=== PATIENT | male | born 1940 | race Caucasian/White ===

== ENCOUNTER → 2018-09-11 09:30 | Outpatient (CLI) | payer MEDICARE, SELFPAY ==
--- NOTE | 2018-09-11 09:36 | CT_ITS ---
CT abdomen pelvis wo con CLINICAL INDICATION: Follow-up left renal cyst ITS.REASON: LT RENAL CYST,AAA ORDERING PHYSICIAN: Sukumar Mckinley MD PATIENT AGE: 78 years COMPARISON: 09/02/2017 TECHNIQUE: Axial images obtained with sagittal and coronal reformats. All CT scans at the facility use one or more dose reduction, viz: automated exposure control, ma/kV adjustment per patient size (including targeted exams where dose is matched to indication, i.e. head), or iterative reconstruction technique. PROCEDURE: Oral Contrast: Redicat IV Contrast: None . IV contrast not utilized due to patient's elevated creatinine FINDINGS: Chronic changes are present in the lung bases. There are coronary artery calcifications. The spleen, liver, adrenal glands, and pancreas show no acute finding. Splenic and hepatic calcifications are present consistent with old granulomatous disease. There is an 8.3 x 7.9 cm left renal cyst along the mid and lower pole of the left kidney similar to the previous exam. No renal or ureteral calculi are evident. No hydronephrosis. There is an infrarenal abdominal aortic aneurysm fusiform in nature measuring up to 3.8 x 4 cm transverse and AP previously 3.6 x 4 cm. No evidence of acute retroperitoneal hemorrhage. No retroperitoneal fibrosis or mass evident. The proximal right common iliac shows mild fusiform dilatation at 1.7 cm not significant change. The distal aspect of the left common iliac is 1.4 cm not significant change. No intestinal obstruction or free air. There are small bilateral inguinal hernias which contain fat. No evidence of appendicitis or diverticulitis. The prostate is enlarged at 6.3 cm with some coarse calcification peripherally on the posterior margin with mild prominence of the seminal vesicles. There are postsurgical changes of the lumbar spine with no acute bony anomaly evident. IMPRESSION: 1. Slightly enlarged abdominal aortic aneurysm measuring up to 4 x 3.8 cm previously 4 x 3.6 cm. No evidence of retroperitoneal hemorrhage. 2. No change in the 8 cm left renal cyst. 3. Enlarged prostate
== END ==
PROVIDERS: PCP Family Medicine; Visit Provider Family Medicine
DX: N28.1 Cyst of kidney, acquired (principal); I71.9 Aortic aneurysm of unspecified site, without rupture
CPT/HCPCS: 74176

== ENCOUNTER → 2019-08-27 14:12 | Outpatient (CLI) | payer MEDICARE, SELFPAY ==
--- NOTE | 2019-08-27 14:23 | CT_ITS ---
PROCEDURE: CT ABDOMEN PELVIS WO CON CLINICAL INDICATION: CYST OF LT KIDNEY,AORTIC ANEURYSM Follow-up left renal cyst COMPARISON: ABDPELW/O CT ABD PELVIS W/O CONTRAST from 03/31/[address] abdomen pelvis wo con from 09/11/2018 TECHNIQUE: Axial images obtained with sagittal and coronal reformats. All CT scans at the facility use one or more dose reduction, viz: automated exposure control, ma/kV adjustment per patient size (including targeted exams where dose is matched to indication, i.e. head), or iterative reconstruction technique. FINDINGS: LOWER THORAX: Mild atelectatic or fibrotic changes in the lung bases. There is a small pneumatocele in the right middle lobe laterally bilobular unchanged measuring 2.8 cm. Coronary artery calcifications are present. Abdomen pelvis: The liver, spleen, adrenal glands, pancreas, and gallbladder have an unremarkable unenhanced appearance. No renal or ureteral calculi. No hydronephrosis. There is an 8.8 x 8.5 cm left renal cyst which has slightly increased in size compared to the previous exam previously at 8.6 by 8.4 cm. No obvious wall thickening or internal septations. This cyst has been present 03/08/2015. There are few scattered small mesenteric lymph nodes nonspecific. No intestinal obstruction or free air. No evidence appendicitis or diverticulitis. There is a infrarenal abdominal aortic aneurysm which measures up to 3.8 cm in transverse dimension and 3.8 cm in AP dimension not significantly changed. No evidence of acute retroperitoneal hemorrhage. The prostate is enlarged at 6 cm. The seminal vesicles are also slightly prominent. Urinary bladder wall appears slightly thickened. There are small bilateral inguinal hernias. The hernias contain fat. A small bowel loop is present at the mouth of the right inguinal hernia but does not extend into the inguinal canal. Mild degenerative changes in the lumbar spine and hips. IMPRESSION: 1. Overall stable CT appearance of the abdomen. 8.8 x 8.5 cm left renal cyst once again noted and may be very slightly larger but not significantly changed. Benign features. Bosniak 1. 2. No change 3.8 cm infrarenal abdominal aortic aneurysm. 3. No change in large prostate with mild thickening of the urinary bladder. 4. Bilateral inguinal hernias containing fat Dictated by: Olivier Harmon MD 08/27/2019 19:42 Electronically signed by Olivier Harmon MD in [place] 08/28/2019 10:12
== END ==
PROVIDERS: PCP Family Medicine; Visit Provider Family Medicine
DX: N28.1 Cyst of kidney, acquired (principal); I71.4 Abdominal aortic aneurysm, without rupture
CPT/HCPCS: 74176

== ENCOUNTER 2021-11-11 12:43 | Inpatient (IN) | payer MEDICARE, SELFPAY ==
[2021-11-11 12:45] VITALS: BP 137/66; PULSE 78; RESP 18; TEMP 36.4; O2SAT 98; BMI 23.7
--- NOTE | 2021-11-11 12:57 | XR_ITS ---
FINAL REPORT CLINICAL HISTORY: pain FINDINGS: LEFT HIP SERIES Two views of the left hip were obtained. There is a left femoral neck fracture with coxa vera deformity. There are mild degenerative changes of the hips bilaterally. IMPRESSION: Left femoral neck fracture with coxa vera deformity. Reviewed, Interpreted and Dictated by Alvino Higuera III, MD Transcribed by VIVIAN King Authenticated by Alvino Higuera III, MD on 11/11/2021 01:39:[address] [facility]
--- NOTE | 2021-11-11 13:00 | HMH.EDGENADL ---
ED Disposition Clinical Impression: Fracture closed, acetabulum Qualifiers: Encounter type: initial encounter Sublocation of acetabulum: unspecified portion of acetabulum Fracture alignment: nondisplaced Laterality: unspecified laterality Qualified Code(s): S32.409A - Unspecified fracture of unspecified acetabulum, initial encounter for closed fracture Disposition: Admitted as Observation Condition on Discharge: [facility] - Critical Care Critical Care Time: No Attestation: On 11/11/21, the high probability of a clinically significant, sudden or life threatening deterioration of the following system(s) required my full and direct attention, intervention and personal management. The time I documented below is in addition to time spent performing reported procedures but includes the following listed in this critical care notation. Medical Decision Making - Medical Records Medical records reviewed: Yes: I reviewed the patient's medical records. - [place] Inquiry Pt receiving controlled substance: No Vital Signs: 11/11/21 12:45 11/11/21 13:50 11/11/21 16:00 Temperature 97.6 F 98.8 F Temperature Source Oral Oral Pulse Rate 68 Pulse Rate [Radial] 78 79 Respiratory Rate 18 18 16 Blood Pressure 146/74 H Blood Pressure [Right Arm] 137/66 128/73 Blood Pressure Mean 95 Blood Pressure Mean [Right Arm] 89 91 Blood Pressure Source [Right Arm] Automatic Cuff Blood Pressure Position Blood Pressure Position [Right Arm] Sitting Supine 02 Sat by Pulse Oximetry 98 96 97 Oxygen Delivery Method Room Air Room Air Oxygen Flow Rate (LPM) 11/11/21 16:10 Temperature 98 F Temperature Source Oral Pulse Rate 78 Pulse Rate [Radial] Respiratory Rate 18 Blood Pressure 122/74 Blood Pressure [Right Arm] Blood Pressure Mean Blood Pressure Mean [Right Arm] Blood Pressure Source [Right Arm] Blood Pressure Position Sitting Blood Pressure Position [Right Arm] 02 Sat by Pulse Oximetry Oxygen Delivery Method Nasal Cannula Oxygen Flow Rate (LPM) 2 - Lab Data Lab Results 11/11/21 13:20: WBC 10.7, RBC 5.00, Hgb 15.0, Hct 46.5, MCV 93.1, MCH 30.1, MCHC 32.3, RDW 12.9, Plt Count 319, MPV 8.7, Neut % (Auto) 82.6 H, Lymph % (Auto) 10.3, [place] % (Auto) 5.7, Eos % (Auto) 1.0, Baso % (Auto) 0.5, Neut # (Auto) 8.8 H, Lymph # (Auto) 1.1, [place] # (Auto) 0.6, Eos # (Auto) 0.1, Baso # (Auto) 0.1 11/11/21 13:20: PT 10.9, INR 0.96, APTT 22.9 11/11/21 13:20: Sodium 133 L, Potassium 4.1, Chloride 103, Carbon Dioxide 23, Anion Gap 11.1, BUN 18, Creatinine 1.10, Estimated Creat Clear 57, Estimated GFR 64, Est GFR ( Amer) 77, Glucose 100, Calcium 8.8, Total Bilirubin 0.6, AST 36, ALT 23, Alkaline Phosphatase 53, Total Protein 7.0, Albumin 4.1, Globulin 2.9, Albumin/Globulin Ratio 1.4 11/11/21 13:20: Hemoglobin A1c 5.6 11/11/21 13:45: SARS-CoV-2 (PCR) Not detected, Influenza A Untype (PCR) Not detected, Influenza Type B (PCR) Not detected 11/11/21 14:30: Blood Type O Positive, Antibody Screen Negative Result diagrams: 11/13/21 06:33 11/13/21 06:33 Orders (Tests/Meds): ED MEDICATIONS Discontinued Medications Generic Name Dose Route Start Last Admin Trade Name Freq PRN Reason Stop Dose Admin Acetaminophen 650 mg 11/12/21 17:27 Acetaminophen 325mg Tab PO 12/12/21 17:26 Q6HP PRN Mild to Moderate Pain Hydrocodone Bitart/Acetaminophen 1 tab 11/12/21 17:27 11/13/21 04:52 Hydrocodone/Apap 5/325 Mg Tablet PO 12/12/21 17:26 1 tab Q4HP PRN Administration Moderate to Severe Pain Hydrocodone Bitart/Acetaminophen 1 - 2 tab 11/13/21 07:24 11/16/21 04:04 Hydrocodone/Apap 5/325 Mg Tablet PO 12/12/21 17:26 1 tab Q4HP PRN Administration Mild to Moderate Pain Aspirin 325 mg 11/13/21 09:00 11/16/21 08:11 Aspirin 325mg Tablet PO 12/13/21 08:59 325 mg DAILY JONAH Administration Docusate Sodium 100 mg 11/12/21 17:27 11/15/21 21:11 Docusate Sodium 100 Mg Capsule PO 12/12/21 17:
--- NOTE | 2021-11-11 13:14 | XR_ITS ---
FINAL REPORT CLINICAL HISTORY: FALL FINDINGS: A single portable view of the chest was obtained. The heart size and pulmonary vascularity are within normal limits. There are postoperative changes of median sternotomy. No acute pulmonary abnormality is identified. There is mild scarring. The bony thorax is intact. IMPRESSION: No active cardiopulmonary disease. Reviewed, Interpreted and Dictated by Alvino Higuera III, MD Transcribed by VIVIAN King Authenticated by Alvino Higuera III, MD on 11/11/2021 01:40:35 PM [facility]
--- NOTE | 2021-11-11 13:20 | ECG_ITS ---
APPROVED REPORT Exam: Resting ECG HR:63 bpm ECG Measurements Heart Rate 63 AXES NV 228 P 59 QRSd 140 QRS 92 QT 414 T 53 QTc 422 Conclusion SINUS RHYTHM WITH FIRST DEGREE AV BLOCK RIGHT BUNDLE BRANCH BLOCK [120+ ms QRS DURATION, UPRIGHT V1, 40+ ms S IN I/aVL/V4/V5/V6] ABNORMAL ECG UNCONFIRMED REPORT Electronically signed by : Joel Vieyra MD 11/12/2021 18:50:22
--- NOTE | 2021-11-11 13:31 | PC.NURSE ---
DR DUQUE SPOKE WITH DR SMITH NOW SPEAKING WITH ASAD/KAHLIL FOR ADMISSION
--- NOTE | 2021-11-11 13:38 | PC.NURSE ---
SPOKE WITH HOUSE REGARDING ADMISSION
[2021-11-11 13:50] VITALS: BP 146/74; PULSE 68; RESP 18; O2SAT 96
[2021-11-11 14:07] LABS: Coronavirus 19, PCR Not Detected (NotDetected); Influenza A, PCR Not Detected (NotDetected); Influenza B, PCR Not Detected (NotDetected)
[2021-11-11 14:10] LABS: Basophils # 0.1 K/mm3 (0-0.2); Basophils % 0.5 % (0.1-2.0); Eosinophils # 0.1 K/mm3 (0.0-0.4); Hematocrit 46.5 % (42.0-52.0); Lymphocytes # 1.1 K/mm3 (0.7-4.5); Lymphocytes % 10.3 % (10-50); Mean Corpuscular HGB Conc 32.3 g/dL (31.8-35.4); Mean Corpuscular Hemoglobin 30.1 pg (27.0-31.2); Mean Corpuscular Volume 93.1 fl (80-94); Mean Platelet Volume 8.7 fl (7.4-10.4); Monocytes # 0.6 K/mm3 (0.1-1.0); Monocytes % 5.7 % (1.7-9.3); Neutrophils # 8.8 K/mm3 (1.8-7.8); Neutrophils % 82.6 % (37.0-80.0); Platelet Count 319 K/mm3 (142-424); Red Cell Distribution Width 12.9 % (11.5-17.5); White Blood Count 10.7 K/mm3 (4.8-10.8)
[2021-11-11 14:17] LABS: Chloride 103 mmol/L (98-107)
[2021-11-11 14:18] LABS: Potassium 4.1 mmoL/L (3.5-5.1); Sodium 133 mmol/L (136-145)
[2021-11-11 14:20] LABS: Alanine Aminotransferase 23 U/L (12-78); Albumin Level 4.1 g/dl (3.5-5.0); Albumin/Globulin Ratio 1.4 (1.1-1.8); Alkaline Phosphatase 53 U/L (38-126); Aspartate Amino Transferase 36 U/L (17-59); Bilirubin,Total 0.6 mg/dl (0.2-1.3); Blood Urea Nitrogen 18 mg/dl (9-20); Creatinine Clearance Estimated 57 mL/min (50-200); Estimated Glomerular Filt Rate 64 ml/min (>60); GFR (African American) 77 ML/MIN (>60); Globulin 2.9 g/dL (1.3-3.2)
[2021-11-11 14:21] LABS: Calcium 8.8 mg/dl (8.4-10.2); Glucose 100 mg/dl (74-100)
[2021-11-11 14:32] LABS: Activated Partial Thrombo Time 22.9 seconds (22.8-30.6); INR 0.96 (0.9-1.1); Prothrombin Time 10.9 seconds (10.1-12.5)
[2021-11-11 14:57] LABS: Hemoglobin A1C 5.6 % (4.0-6.0)
--- NOTE | 2021-11-11 15:30 | PC.NURSE ---
report called to floor
[2021-11-11 15:53] LABS: Anion Gap 11.1 mEq/L (5-15); Carbon Dioxide 23 mmol/L (22.0-30.0)
[2021-11-11 16:00] VITALS: BP 128/73; PULSE 79; RESP 16; TEMP 37.1; O2SAT 97
[2021-11-11 16:10] VITALS: BP 122/74; PULSE 78; RESP 18; TEMP 36.6; O2SAT 98
--- NOTE | 2021-11-11 16:22 | HMH.ORTHOCON ---
*Admission Date: 11/11/21 <Chasidy Ames - 11/11/21 16:22> *Reason for consult:: left hip fracture <Chasidy Ames - 11/11/21 16:22> *History of present illness: PCP is Dr. Mckinley. No history of any prior hip pain, injuries, surgery or problems. Normally mobile and independent without using any walking aids. He lives in a house which is on one level but has few steps to get into the house. Patient is giving history of type 2 diabetes which is well controlled. 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 <Hany Borden - 11/11/21 19:30> Patient is an 81-year-old male admitted to the acute inpatient service today 11/11/2021 from the [facility] ED after sustaining a fall at home. He reports that earlier today he was walking to his mailbox when he slipped on ice and fell. He reports that he fell on his left side and had immediate pain in his left hip; he was unable to get up and walk but was able to crawl back to his house. He presented to the [facility] ED where evaluation revealed a left subcapital femoral neck fracture. This afternoon the patient states that he has little pain at rest but any attempted movements of the left hip/leg cause him severe pain in his left hip. At baseline he states that he is ambulatory without the use of a cane or walker and lives at home with his . He denies dizziness, weakness, loss of consciousness, chest pain, palpitations, shortness of breath, or any other symptoms/concerns at this time. His past medical history is significant for hypertension, hyperlipidemia, and coronary artery disease. <Chasidy Ames - 11/11/21 16:40> [facility] History Medical History: Reports:: Coronary Artery Disease, Hyperlipidemia, Hypertension Denies:: Diabetes Mellitus Type 1, Diabetes Mellitus Type 2, Internal Pacemaker, Lung Disease, Seizures <Chasidy Ames - 11/11/21 16:22> *Have you ever received a pneumonia vaccine?: Yes <Chasidy Ames - 11/11/21 16:22> *Have you received a flu vaccine this season?: Yes <Chasidy Ames - 11/11/21 16:22> Other Surgeries: Yes: CABG, Colonoscopy, Other (back). No: Pacemaker <Chasidy Ames 11/11/21 16:22> - *Social History Smoking Status: Never smoker <Chasidy Ames 11/11/21 16:22> Alcohol Intake: never <Chasidy Ames 11/11/21 16:22> Substance Use Type: denies use <Chasidy Ames 11/11/21 16:22> *Occupational Status:: other <Chasidy Ames 11/11/21 16:22> *Travel in the last 8 weeks: None <Chasidy Ames 11/11/21 16:49> Family Hx:: No significant family history <Chasidy Ames 11/11/21 16:22> Review of Systems - Review of Systems Review of systems:: pertinent systems reviewed and negative unless documented below <Chasidy Ames 11/11/21 16:40> - Constitutional Denies anorexia, Denies body ache(s), Denies chills, Denies fatigue, Denies fever(s), Denies headache(s), Denies weakness <Chasidy Ames 11/11/21 16:40> - Eyes Denies blurry vision, Denies change in vision, Denies loss of vision <Chasidy Ames 11/11/21 16:40> - ENT Denies abnormal hearing, Denies dizziness, Denies headache(s), Denies nasal congestion, Denies neck pain, Denies sore throat <Chasidy Ames 11/11/21 16:40> - *Cardiovascular Denies chest pain, Denies chest pain at rest, Denies chest pain with activity, Denies shortness of breath, Denies shortness of breath with activity, Denies irregular heart rhythm, Denies radiating jaw, neck or arm pain <Chasidy Ames 11/11/21 16:40> - *Respiratory Denies chest congestion, Denies cough, Denies shortness of breath, Denies shortness of breath with activity, Denies wheezing <Chasidy Ames 11/11/21 16:40> - *Gastrointestinal Denies abdominal pain, Denies constipation, Denies nausea, Denies vomiting <Chasidy Ames - 11/11/21 16:40> - *Genitourinary Denies difficulty urinating, Denies painful urination, Denies uri
[2021-11-11 17:04] VITALS: BMI 22.8
[2021-11-11 17:46] LABS: Microscopic, Urine URINE MICROSCOPIC (MICROSCOPIC)
[2021-11-11 18:11] LABS: Appearance,Urine SL CLOUDY (Clear); Bilirubin,Urine Negative (Negative); Blood, Urine 3+ (Negative); Color,Urine YELLOW (Yellow); Glucose,Urine (UA) Negative (Negative); Ketones,Urine TRACE (Negative); Leukocyte Esterase,Urine Negative (Negative); Nitrate,Urine Negative (Negative); Protein,Urine Negative (Negative); Urobilinogen,Urine 0.2 EU/dl (0.2)
--- NOTE | 2021-11-11 18:17 | HMH.HP ---
*Admission Date: 11/11/21 *Chief complaint: fall w/left hip pain *History of present illness: 81 year old male fell at home after slipping on ice and sustained left hip injury. Evaluttion in ER revealed subcapital left femoral neck fracture. He has been admitted with planned surgical correction. [facility] History I have reviewed the patient's past medical history: Yes Medical History: Reports:: BPH, Coronary Artery Disease (CABG 1990), Hyperlipidemia, Hypertension Denies:: Diabetes Mellitus Type 1, Diabetes Mellitus Type 2, Internal Pacemaker, Lung Disease, Seizures *Have you ever received a pneumonia vaccine?: Yes *Have you received a flu vaccine this season?: Yes Other Medical History: Reports: Arthritis Other Surgeries: Yes: CABG, Colonoscopy, Other (back). No: Pacemaker - *Social History Smoking Status: Former smoker Alcohol Intake: never Substance Use Type: denies use *Occupational Status:: retired *Travel in the last 8 weeks: None Family Hx:: Heart Attack Review of Systems - Review of Systems Review of systems:: pertinent systems reviewed and negative unless documented below - *Cardiovascular Denies chest pain, Denies chest pain at rest, Denies chest pain with activity, Denies shortness of breath, Denies shortness of breath with activity, Denies irregular heart rhythm, Denies leg swelling, Denies shortness of breath when lying down, Denies rapid, pounding, or irregular heartbeat, Denies shortness of breath causing sudden awakening, Denies radiating jaw, neck or arm pain - *Neurologic Reports abnormal walking, Denies abnormal hearing, Denies abnormal movements, Denies abnormal speech, Denies behavioral changes, Denies confusion, Denies dizziness, Denies headache(s), Denies loss of vision, Denies numbness, Denies sensory deficit, Denies tingling, Denies weakness Meds Home Medications Medication Instructions Recorded Confirmed Type aspirin 81 mg tablet,delayed 81 mg PO DAILY 09/12/18 11/11/21 History release losartan 100 mg tablet 100 mg PO DAILY 09/12/18 11/11/21 History simvastatin 40 mg tablet 40 mg PO QHS 09/12/18 11/11/21 History Allergies Allergy/AdvReac Type Severity Reaction Status Date / Time codeine [CODEINE] Allergy Unknown I-RASH Verified 09/18/19 11:10 Exam Vital signs and Labs for Last 24 Hours: Temp Pulse Resp BP Pulse Ox 98 F 78 18 122/74 96 11/11/21 16:10 11/11/21 16:10 11/11/21 16:10 11/11/21 16:10 11/11/21 13:50 Laboratory Results - last 24 hr 11/11/21 13:20: WBC 10.7, RBC 5.00, Hgb 15.0, Hct 46.5, MCV 93.1, MCH 30.1, MCHC 32.3, RDW 12.9, Plt Count 319, MPV 8.7, Neut % (Auto) 82.6 H, Lymph % (Auto) 10.3, [place] % (Auto) 5.7, Eos % (Auto) 1.0, Baso % (Auto) 0.5, Neut # (Auto) 8.8 H, Lymph # (Auto) 1.1, [place] # (Auto) 0.6, Eos # (Auto) 0.1, Baso # (Auto) 0.1 11/11/21 13:20: PT 10.9, INR 0.96, APTT 22.9 11/11/21 13:20: Sodium 133 L, Potassium 4.1, Chloride 103, Carbon Dioxide 23, Anion Gap 11.1, BUN 18, Creatinine 1.10, Estimated Creat Clear 57, Estimated GFR 64, Est GFR ( Amer) 77, Glucose 100, Calcium 8.8, Total Bilirubin 0.6, AST 36, ALT 23, Alkaline Phosphatase 53, Total Protein 7.0, Albumin 4.1, Globulin 2.9, Albumin/Globulin Ratio 1.4 11/11/21 13:20: Hemoglobin A1c 5.6 11/11/21 13:45: SARS-CoV-2 (PCR) Not detected, Influenza A Untype (PCR) Not detected, Influenza Type B (PCR) Not detected 11/11/21 14:30: Blood Type O Positive, Antibody Screen Negative I & O for Last 24 hours: Intake & Output 11/09/21 11/10/21 11/11/21 11/12/21 11:59 11:59 11:59 11:59 Weight 167 lb 15.876 oz - Constitutional no acute distress - *Routine HEENT Exam Head: Present: normocephalic Eye: Present: EOMI, PERRL ENT: Present: mucous membranes moist - *Routine Neck Exam Present: supple. Absent: lymphadenopathy - *Routine Respiratory Exam Present: CTA bilaterally - *Routine Cardiovascular Exam Present: RRR - *Routine Abdominal Exam Present: soft, normoactive bowel s
[2021-11-11 18:20] LABS: Bacteria,Urine 1+ /lpf; RBC,Urine 50-100 #/hpf (0-3); Squamous Epithelial Cell,Urine Occasional #/hpf (0-5)
[2021-11-11 20:00] VITALS: BP 127/70; PULSE 81; RESP 18; TEMP 36.8; O2SAT 92
[2021-11-12] VITALS (19 sets, daily range): BP systolic 98–156; BP diastolic 53–84; PULSE 61–100; RESP 12–18; TEMP 36.6–43; O2SAT 93–95; BMI 22.6
--- NOTE | 2021-11-12 05:37 | PC.NURSE ---
Pt has c/o x3 of pain in left hip, medicated per MAR with some relief. Pt remains on 2L NC with O2 sats >90%. O2 sat on RA is 88-89%. Sheth is draining dark aristeo urine at bedside. Call light within reach.
[2021-11-12 06:20] LABS: Basophils % 0.4 % (0.1-2.0); Eosinophils # 0.3 K/mm3 (0.0-0.4); Eosinophils % 2.5 % (0.1-12.0); Hematocrit 43.2 % (42.0-52.0); Hemoglobin 14.4 g/dL (14.1-18.0); Lymphocytes # 1.1 K/mm3 (0.7-4.5); Lymphocytes % 10.2 % (10-50); Mean Corpuscular HGB Conc 33.4 g/dL (31.8-35.4); Mean Corpuscular Hemoglobin 30.1 pg (27.0-31.2); Mean Corpuscular Volume 89.9 fl (80-94); Mean Platelet Volume 8.6 fl (7.4-10.4); Monocytes # 0.8 K/mm3 (0.1-1.0); Monocytes % 7.3 % (1.7-9.3); Neutrophils # 8.8 K/mm3 (1.8-7.8); Neutrophils % 79.7 % (37.0-80.0); Platelet Count 276 K/mm3 (142-424); White Blood Count 11.1 K/mm3 (4.8-10.8)
[2021-11-12 06:27] LABS: Chloride 106 mmol/L (98-107); Potassium 3.9 mmoL/L (3.5-5.1); Sodium 133 mmol/L (136-145)
[2021-11-12 06:29] LABS: Alanine Aminotransferase 17 U/L (12-78); Aspartate Amino Transferase 30 U/L (17-59); Blood Urea Nitrogen 14 mg/dl (9-20); Creatinine Clearance Estimated 60 mL/min (50-200); Estimated Glomerular Filt Rate 71 ml/min (>60); GFR (African American) 86 ML/MIN (>60)
[2021-11-12 06:30] LABS: Albumin Level 3.6 g/dl (3.5-5.0); Albumin/Globulin Ratio 1.4 (1.1-1.8); Alkaline Phosphatase 53 U/L (38-126); Anion Gap 6.9 mEq/L (5-15); Calcium 7.9 mg/dl (8.4-10.2); Carbon Dioxide 24 mmol/L (22.0-30.0); Globulin 2.6 g/dL (1.3-3.2); Glucose 95 mg/dl (74-100); Total Protein,Serum 6.2 g/dl (6.3-8.2)
--- NOTE | 2021-11-12 07:37 | HMH.PHAVTE ---
[facility] Pharmacy VTE Monitoring - Patient Demographics Admission date: 11/11/21 Report Date: 11/12/21 Time: 07:37 Allergies/Adverse Reactions: Patient Allergies codeine [CODEINE] Allergy (Unknown, Verified 09/18/19 11:10) I-RASH Height: 1.83 m Weight: 75.9 kg Patient Problems: Current Active Problems Fracture closed, acetabulum (Acute) Closed displaced fracture of left femoral neck (Acute) Essential hypertension (Acute) CAD (coronary artery disease) (Acute) BPH loc w urin obs/LUTS (Acute) - VTE Risk Labs: VTE Related Lab Results Hgb 14.4 g/dL (14.1-18.0) 11/12/21 05:16 Hct 43.2 % (42.0-52.0) 11/12/21 05:16 Plt Count 276 K/mm3 (142-424) 11/12/21 05:16 PT 10.9 seconds (10.1-12.5) 11/11/21 13:20 INR 0.96 (0.9-1.1) 11/11/21 13:20 APTT 22.9 seconds (22.8-30.6) 11/11/21 13:20 BUN 14 mg/dl (9-20) 11/12/21 05:16 Creatinine 1.00 mg/dl (0.66-1.25) 11/12/21 05:16 Estimated Creat Clear 60 mL/min (50-200) 11/12/21 05:16 VTE Score: 3 VTE Risk Level: Low Risk - Prophylaxis VTE Prophylaxis Ordered?: Yes Types of VTE Prophylaxis: TEDS Knee High Location of Applied Device: Bilateral Lower Extremeties
--- NOTE | 2021-11-12 07:52 | HMH.ACPN2 ---
Internal Medicine - PN: Subj *Date: 11/12/21 *Time: 07:52 Interval history: Patient without complaints this morning. He did not sleep well. Exam Vital signs and Labs for Last 24 Hours: Temp Pulse Resp BP Pulse Ox 98.0 F 78 16 129/72 95 11/12/21 04:00 11/12/21 04:00 11/12/21 04:00 11/12/21 04:00 11/12/21 04:00 Laboratory Results - last 24 hr 11/11/21 13:20: WBC 10.7, RBC 5.00, Hgb 15.0, Hct 46.5, MCV 93.1, MCH 30.1, MCHC 32.3, RDW 12.9, Plt Count 319, MPV 8.7, Neut % (Auto) 82.6 H, Lymph % (Auto) 10.3, [place] % (Auto) 5.7, Eos % (Auto) 1.0, Baso % (Auto) 0.5, Neut # (Auto) 8.8 H, Lymph # (Auto) 1.1, [place] # (Auto) 0.6, Eos # (Auto) 0.1, Baso # (Auto) 0.1 11/11/21 13:20: PT 10.9, INR 0.96, APTT 22.9 11/11/21 13:20: Sodium 133 L, Potassium 4.1, Chloride 103, Carbon Dioxide 23, Anion Gap 11.1, BUN 18, Creatinine 1.10, Estimated Creat Clear 57, Estimated GFR 64, Est GFR ( Amer) 77, Glucose 100, Calcium 8.8, Total Bilirubin 0.6, AST 36, ALT 23, Alkaline Phosphatase 53, Total Protein 7.0, Albumin 4.1, Globulin 2.9, Albumin/Globulin Ratio 1.4 11/11/21 13:20: Hemoglobin A1c 5.6 11/11/21 13:45: SARS-CoV-2 (PCR) Not detected, Influenza A Untype (PCR) Not detected, Influenza Type B (PCR) Not detected 11/11/21 14:30: Blood Type O Positive, Antibody Screen Negative 11/11/21 17:35: Urine Color Yellow, Urine Appearance Sl cloudy, Urine pH 7.0, Ur Specific [place] 1.020, Urine Protein Negative, Urine Glucose (UA) Negative, Urine Ketones Trace, Urine Blood 3+, Urine Nitrate Negative, Urine Bilirubin Negative, Urine Urobilinogen 0.2, Ur Leukocyte Esterase Negative, Urine RBC 50-100, Ur Squamous Epith Cells Occasional, Urine Bacteria 1+ 11/12/21 05:16: WBC 11.1 H, RBC 4.80, Hgb 14.4, Hct 43.2, MCV 89.9, MCH 30.1, MCHC 33.4, RDW 13.0, Plt Count 276, MPV 8.6, Neut % (Auto) 79.7, Lymph % (Auto) 10.2, [place] % (Auto) 7.3, Eos % (Auto) 2.5, Baso % (Auto) 0.4, Neut # (Auto) 8.8 H, Lymph # (Auto) 1.1, [place] # (Auto) 0.8, Eos # (Auto) 0.3, Baso # (Auto) 0.0 11/12/21 05:16: Sodium 133 L, Potassium 3.9, Chloride 106, Carbon Dioxide 24, Anion Gap 6.9, BUN 14, Creatinine 1.00, Estimated Creat Clear 60, Estimated GFR 71, Est GFR ( Amer) 86, Glucose 95, Calcium 7.9 L, Total Bilirubin 1.0, AST 30, ALT 17 D, Alkaline Phosphatase 53, Total Protein 6.2 L, Albumin 3.6 D, Globulin 2.6, Albumin/Globulin Ratio 1.4 I & O for Last 24 hours: Intake & Output 11/09/21 11/10/21 11/11/21 11/12/21 11:59 11:59 11:59 11:59 Intake Total 120 / 120 Output Total 1000 / 1000 Balance -880 / -880 Weight 167 lb 5.294 oz Narrative: Patient appears comfortable. Lungs are clear to auscultation. Heart has a regular rate and rhythm. Lower extremities have no edema Assessment and Plan (1) Closed displaced fracture of left femoral neck Status: Acute Category: Medical Code(s): S72.002A - Fracture of unspecified part of neck of left femur, initial encounter for closed fracture (2) Essential hypertension Status: Acute Category: Medical Code(s): I10 - Essential (primary) hypertension (3) CAD (coronary artery disease) Status: Acute Category: Medical Code(s): I25.10 - Atherosclerotic heart disease of [place] coronary artery without angina pectoris (4) BPH loc w urin obs/LUTS Status: Acute Category: Medical Code(s): N40.1 - Benign prostatic hyperplasia with lower urinary tract symptoms - Assessment and plan all Dx Assessment and Plan for all problems:: 1. Plan is for surgery today
--- NOTE | 2021-11-12 08:56 | HMH.ORTHPN ---
Subjective Date: 11/12/21 <AmesChasidy wing - 11/12/21 09:10> Time: 08:30 <HuiChasidy - 11/12/21 09:10> Principal diagnosis: left subcapital femoral neck fracture <Chasidy Ames - 11/12/21 09:10> Interval history: Patient is an 81-year-old male admitted to the acute inpatient service 11/11/2021 from the [facility] ED after sustaining a fall at home. This morning the patient states that he has little pain at rest but continues to report pain in his left hip with any movement. He reports that he did not sleep well last night due to the pain. At baseline he is ambulatory without the use of a cane or walker and lives at home with his in a single story home. His PCP is Dr. Mckinley. This morning he denies any history of diabetes, upon admission his HbA1c is 5.6; he states that he does not take any medications for blood sugar control. He denies chest pain, palpitations, shortness of breath, distal tingling/numbness, or any other symptoms/concerns at this time. He states that he has not had anything to eat or drink since yesterday evening. His past medical history is significant for hypertension, hyperlipidemia, and coronary artery disease. <Chasidy Ames - 11/12/21 09:18> PN: Obj Ex Vital signs: Temp Pulse Resp BP Pulse Ox 98.4 F 69 16 129/53 L 95 11/12/21 17:20 11/12/21 17:20 11/12/21 17:20 11/12/21 17:20 11/12/21 17:20 <Hany Borden - 11/12/21 17:33> Temp Pulse Resp BP Pulse Ox 98.0 F 78 16 129/72 95 11/12/21 04:00 11/12/21 04:00 11/12/21 04:00 11/12/21 04:00 11/12/21 04:00 <Chasidy Ames - 11/12/21 09:10> - Constitutional no acute distress, average body habitus, cooperative <Chasidy Ames - 11/12/21 09:18> - Routine HEENT Exam Head: Present: normocephalic, atraumatic <Chasidy Ames 11/12/21 09:18> Eye: Present: EOMI, PERRL <Chasidy Ames 11/12/21 09:18> ENT: Present: mucous membranes moist <Chasidy Ames 11/12/21 09:18> - Routine Neck Exam Present: supple, full ROM, trachea midline. Absent: JVD, lymphadenopathy <Chasidy Ames 11/12/21 09:18> - Routine Respiratory Exam Absent: accessory muscle use, respiratory distress <Chasidy Ames 11/12/21 09:18> Comments: Symmetric chest movement, able to speak in complete sentences <Chasidy Ames 11/12/21 09:18> - Routine Cardiovascular Exam Present: RRR. Absent: JVD <Chasidy Ames 11/12/21 09:18> Comments: Normal peripheral pulses <Chasidy Ames 11/12/21 09:18> - Routine Abdominal Exam Present: soft. Absent: tenderness <Chasidy Ames 11/12/21 09:18> - Routine Extremities Exam Present: pulses intact, normal capillary refill. Absent: clubbing, edema, calf tenderness <Chasidy Ames 11/12/21 09:18> Comments: Upon examination of the lower extremities: The left leg is shortened and externally rotated. Upon examination of the left hip, the skin is intact. No lacerations, abrasions, wounds, ecchymosis, or erythema noted. The left hip and proximal femur are tender to palpation. Any attempted movements of the left hip are painful. Thigh and calf are soft nontender; Homans' sign is negative. No clinical evidence of DVT noted. Posterior tibial and dorsalis pedis pulses 1+; capillary refill is brisk. Sensation to light touch is grossly intact throughout. Patient is actively mobilizing the knee, foot, ankle, and toes. <Chasidy Ames 11/12/21 09:18> - Routine Skin Exam Present: intact, warm, normal turgor. Absent: cyanosis, erythema, lesions, jaundice, ecchymosis <AmesChasidy 11/12/21 09:18> - Routine Neurological Exam Present: alert, oriented X3, CN II-XII intact, moving all extremities, normal tone, normal speech. Absent: sensory deficit, motor deficit, altered mental status <Chasidy Ames - 11/12/21 09:18> - Routine Psychiatric Exam Present: normal affect, cooperative, good judgment <Chasidy Ames - 11/12/21 09:18> - Rodolfo
--- NOTE | 2021-11-12 11:12 | HMH.PHAINT ---
MEDICATION RECONCILIATION COMPLETED ON PATIENT USING LIST FROM PCP OFFICE. -JULIEN LAROSE, EVELYND
--- NOTE | 2021-11-12 12:45 | P.PN_ITS ---
[facility] Anesthesia Checklist - Patient Identification Patient Identification: Arm Band - Structural Data Admitted From: Inpatient Planned Operative Procedure/s: Hip arthroplasty Consent for Planned Operative Procedure(s) Verified: Yes - NPO Status Verified Time NPO: 00:00 - Additional verifications Anesthesia Reactions: No - Airway Assessment C-Spine Mobility Assessed: Yes TMJ Mobility Assessed: Yes Dentition: Dentures-poor fitting - Neurological Assessment Level of Consciousness: Awake Hx Seizures: No Numbness or tingling in extremities: No - Anesthesia Plan Anesthesia Risk discussed: Yes Anesthesia Plan: Verified ASA Class: III Anesthesia Type: MAC w/Spinal [facility] History I have reviewed the patient's past medical history: Yes Medical History: Reports:: BPH, Coronary Artery Disease (CABG 1990), Hyperlipidemia, Hypertension Denies:: Diabetes Mellitus Type 1, Diabetes Mellitus Type 2, Internal Pacemaker, Lung Disease, Seizures *Have you ever received a pneumonia vaccine?: Yes *Have you received a flu vaccine this season?: Yes Other Medical History: Reports: Arthritis Anesthesia experience/problems:: None Other Surgeries: Yes: CABG, Colonoscopy, Other (back). No: Pacemaker - *Social History Smoking Status: Former smoker Alcohol Intake: never Substance Use Type: denies use *Occupational Status:: retired *Travel in the last 8 weeks: None Family Hx:: Heart Attack
--- NOTE | 2021-11-12 15:43 | SUR.OPER ---
1543-wound irrigated with betadine 17.5ml's in 500ml's NS for [address] Borden at this time
--- NOTE | 2021-11-12 16:24 | SUR.OPER ---
1622-family updated at this time
--- NOTE | 2021-11-12 16:34 | XR_ITS ---
PROCEDURE INFORMATION: Exam: XR Left Hip Exam date and time: 11/12/2021 4:34 PM Age: 81 years old Clinical indication: Device placement; Other: Replacement; Prior surgery; Surgery date: Post-operative (0-2 days); Additional info: S/P left hip hemiarthroplasty TECHNIQUE: Imaging protocol: XR Left hip. Views: 2 or 3 views hip with pelvis when performed. COMPARISON: CT ABDOMEN PELVIS WO CON 08/27/2019 2:27 PM FINDINGS: Bones/joints: Left hip hemiarthroplasty. No acute fracture. Soft tissues: Postoperative changes. IMPRESSION: Status post left hemiarthroplasty.
--- NOTE | 2021-11-12 16:56 | HMH.ANESI ---
[facility] Anesthesia Record Part I Intake, IV Amount: 2,000 Estimated blood loss (mL): 150 Urine output (mL): 400 Blood Pressure: 134/72 SaO2: 95 Pulse Rate: 72 Respiratory Rate: 12 Temperature: 99.2 F Patient is:: Drowsy, Stable Stable to PACU at:: 16:50
--- NOTE | 2021-11-12 17:13 | SUR.PHASEI ---
Yeny Sorensen RN called report to Yumiko Ivy RN @ this time
--- NOTE | 2021-11-12 17:22 | SUR.PHASEI ---
1720 - out of PACU @ this time, transported by Sukumar Powell and Yeny SorensenRN
--- NOTE | 2021-11-12 17:30 | SUR.PHASEI ---
1725 - Pt left in stable condition w/ J MAURA Ivy. Bed in lowest position, bed rails up, call michael w/in reach.
--- NOTE | 2021-11-12 17:33 | HMH.OPNOTE ---
Date of procedure: 11/12/21 Pre-op Diagnosis:: Closed, displaced, subcapital femoral neck fracture, left hip Post-op Diagnosis:: Same Procedure performed:: Uncemented bipolar hemiarthroplasty, left hip Surgeon:: Hany Borden MD Ultrasound Tech(s):: Chasidy Ames PA-C AIR BOX TESTER:: Janes Umaña Anesthesia: spinal Estimated blood loss (mL): 150 Clinical Note:: Patient is an 81-year-old male who sustained a displaced intracapsular fracture neck of left femur following a fall at home after slipping on ice. A hemiarthroplasty is indicated to relieve pain and restore function. The operation is clinically indicated and is the standard of care for this type of fracture. Please refer to orthopedic consult note for full details. Operative findings:: Displaced sub capital femoral neck fracture of the left hip as noted on the preoperative hip x-rays. The articular cartilage of the acetabulum is well preserved without evidence of significant arthritis. The proximal femur bone quality is good. Operative note:: On the day of the procedure the patient and his were met in the preoperative area, and a physical examination was performed. The operating side and site were marked and initialed by me. I have again reviewed the diagnosis, natural history and management options in detail including both the nonsurgical and surgical. Given the nature of the fracture, I have recommended surgery in the form of a hemiarthroplasty of the left hip. I have discussed the procedure, risks and benefits, alternatives, potential complications and expected outcomes with patient and his . The complications discussed include but are not limited to infection, injury to nerves and blood vessels, DVT and PE, femur fracture, limb length inequality, dislocation, implant failure, loosening, acetabular wear, osteolysis, periprosthetic femur fracture, heterotopic ossification, abductor weakness and a limp, incomplete relief of pain, incomplete return of function or motion, likely need for further surgery in future including revision, anesthetic/medical complications including heart attack, stroke, transfusion reactions and even . We discussed how any of these events can be devastating. We have discussed nonsurgical alternatives as well. We also discussed the postoperative course including the rehab and physical therapy required. Patient understood the risks, agreed to proceed with surgery, signed the consent form and no guarantees or assurances were given or implied. The patient was brought to the operating room and a spinal anesthesia was administered by the cellular biologist. The patient was then transferred onto the operating table and positioned in the right lateral decubitus position with the left hip facing upwards. All the bony prominences were well-padded. The left lower extremity was then prepped and draped in the usual sterile fashion. The entire operative team used isolation suits and room traffic was controlled. The surgical landmarks and incision was marked over the skin with a marking pen. Ioban sterile drape was used to cover the operative site and isolate the perineum completely from the operative field. Administration of prophylactic IV antibiotics (Ancef and vancomycin) was confirmed with the cellular biologist. A preprocedure timeout was performed as per hospital protocol. A posterior approach was used to the hip joint. An electrocautery was used for hemostasis. The skin incision was made centering over the posterior border of the greater trochanter extending posteriorly in a curvilinear fashion across the buttock. The dissection was carried through subcutaneous tissue down to the fascia dorinda. The fascia dorinda and gluteus fascia were split and a Charnley retractor was placed. The trochanteric bursa was then removed with blunt dissection. The sciatic nerve was identified and kept out of the harm's way throughout the rest of the procedure. The hip was then internally rotated and the fat over the external rot
[2021-11-13] VITALS (9 sets, daily range): BP systolic 104–161; BP diastolic 53–71; PULSE 69–104; RESP 17–20; TEMP 36.6–37.8; O2SAT 89–97; BMI 22.6
--- NOTE | 2021-11-13 05:38 | PC.NURSE ---
Pt has slept in intervals this shift. BLT lungs CTA, bowel sounds present in all 4 quadrants. IV patent and infusing without difficulty. Pt is on RA, catheter patent and draining yellow urine. Dressing to Lt hip remains C/D/I, wedge in place. Scud to RLE, Pt medicated per MAR for pain this shift. Pt denies SOA, headache, or N/V. VSS
[2021-11-13 06:58] LABS: Basophils % 0.3 % (0.1-2.0); Eosinophils # 0.1 K/mm3 (0.0-0.4); Eosinophils % 0.4 % (0.1-12.0); Hematocrit 37.7 % (42.0-52.0); Hemoglobin 12.6 g/dL (14.1-18.0); Lymphocytes # 0.8 K/mm3 (0.7-4.5); Lymphocytes % 6.2 % (10-50); Mean Corpuscular HGB Conc 33.4 g/dL (31.8-35.4); Mean Corpuscular Hemoglobin 30.4 pg (27.0-31.2); Mean Corpuscular Volume 91.1 fl (80-94); Mean Platelet Volume 9.2 fl (7.4-10.4); Neutrophils # 10.3 K/mm3 (1.8-7.8); Neutrophils % 85.1 % (37.0-80.0); Platelet Count 240 K/mm3 (142-424); Red Blood Count 4.14 M/mm3 (4.60-6.20); Red Cell Distribution Width 13.1 % (11.5-17.5); White Blood Count 12.1 K/mm3 (4.8-10.8)
[2021-11-13 07:00] LABS: MANUAL DIFFERENTIAL MANUAL DIFFERENTIAL (MANUAL DIFF)
[2021-11-13 07:03] LABS: Chloride 105 mmol/L (98-107); Potassium 3.5 mmoL/L (3.5-5.1); Sodium 129 mmol/L (136-145)
[2021-11-13 07:06] LABS: Alanine Aminotransferase 14 U/L (12-78); Albumin/Globulin Ratio 1.3 (1.1-1.8); Alkaline Phosphatase 42 U/L (38-126); Anion Gap 6.5 mEq/L (5-15); Aspartate Amino Transferase 41 U/L (17-59); Bilirubin,Total 0.7 mg/dl (0.2-1.3); Blood Urea Nitrogen 13 mg/dl (9-20); Carbon Dioxide 21 mmol/L (22.0-30.0); Creatinine Clearance Estimated 60 mL/min (50-200); Estimated Glomerular Filt Rate 81 ml/min (>60); GFR (African American) 98 ML/MIN (>60); Globulin 2.3 g/dL (1.3-3.2); Total Protein,Serum 5.3 g/dl (6.3-8.2)
[2021-11-13 07:07] LABS: Calcium 7.1 mg/dl (8.4-10.2); Glucose 102 mg/dl (74-100)
--- NOTE | 2021-11-13 07:08 | HMH.ACPN2 ---
Internal Medicine - PN: Subj *Date: 11/13/21 *Time: 07:08 Interval history: Patient underwent successful uncemented bipolar hemiarthroplasty of the left hip yesterday. Postoperatively he has had expected pain that is managed with oral pain medication. He denies any new complaints. No chest pain or shortness of breath. Exam Vital signs and Labs for Last 24 Hours: Temp Pulse Resp BP Pulse Ox 98.4 F 104 H 17 126/63 95 11/13/21 04:00 11/13/21 04:00 11/13/21 04:00 11/13/21 04:00 11/13/21 04:00 Laboratory Results - last 24 hr 11/13/21 06:33: WBC 12.1 H, RBC 4.14 L, Hgb 12.6 L, Hct 37.7 L, MCV 91.1, MCH 30.4, MCHC 33.4, RDW 13.1, Plt Count 240, MPV 9.2, Neut % (Auto) 85.1 H, Lymph % (Auto) 6.2 L, [place] % (Auto) 8.0, Eos % (Auto) 0.4, Baso % (Auto) 0.3, Neut # (Auto) 10.3 H, Lymph # (Auto) 0.8, [place] # (Auto) 1.0, Eos # (Auto) 0.1, Baso # (Auto) 0.0 I & O for Last 24 hours: Intake & Output 11/10/21 11/11/21 11/12/21 11/13/21 11:59 11:59 11:59 11:59 Intake Total 120 / 120 2000 / 2000 Output Total 1000 / 1000 900 / 900 Balance -880 / -880 1100 / 1100 Weight 167 lb 5.294 oz Narrative: Patient looks comfortable. Lungs are clear. Heart has a regular rate and rhythm. Abdomen is soft. Assessment and Plan (1) Closed displaced fracture of left femoral neck Status: Acute Category: Medical Code(s): S72.002A - Fracture of unspecified part of neck of left femur, initial encounter for closed fracture (2) Essential hypertension Status: Acute Category: Medical Code(s): I10 - Essential (primary) hypertension (3) CAD (coronary artery disease) Status: Acute Category: Medical Code(s): I25.10 - Atherosclerotic heart disease of [place] coronary artery without angina pectoris (4) BPH loc w urin obs/LUTS Status: Acute Category: Medical Code(s): N40.1 - Benign prostatic hyperplasia with lower urinary tract symptoms - Assessment and plan all Dx Assessment and Plan for all problems:: 1. PT eval today. I did have a discussion with patient about usual course after hip fracture. Patient's desire is to return home soon as he helps take care of his who is insulin-dependent.
[2021-11-13 09:11] LABS: Lymphocytes % 7 % (10-50); Monocytes % 10 % (2-9); Neutrophils % 83 % (42-76); Platelet Estimate Normal; RBC Morphology Normal; Total Cells Counted 100
--- NOTE | 2021-11-13 10:07 | HMH.ORTHPN ---
Subjective Date: 11/13/21 <AmesChasidy wing - 11/13/21 10:07> Time: 09:40 <HuiChasidy 11/13/21 10:07> Principal diagnosis: left subcapital femoral neck fracture <AmesChasidy wing 11/13/21 10:07> Interval history: Patient is an 81-year-old male who underwent an uneventful left bipolar hemiarthroplasty yesterday 11/12/2021. Today he is postop day #1. This morning the patient is lying comfortably in bed and his is present at the bedside. He reports that he has pain in his left hip as to be expected at this stage but says it is well controlled with pain medication. He states that he was able to get some rest last night and has been eating and drinking well. PT/OT is present at the bedside this morning and the patient was able to ambulate with the use of a walker. He denies chest pain, palpitations, shortness of breath, nausea, vomiting, fevers, chills, distal tingling/numbness, or any other symptoms/concerns at this time. His past medical history is significant for hypertension, hyperlipidemia, and coronary artery disease. <Chasidy Ames 11/13/21 10:17> PN: Obj Ex Vital signs: Temp Pulse Resp BP Pulse Ox 97.9 F 72 20 161/71 H 97 11/13/21 16:00 11/13/21 16:00 11/13/21 16:00 11/13/21 16:00 11/13/21 16:00 <Hany Borden - 11/13/21 16:42> Temp Pulse Resp BP Pulse Ox 98.4 F 104 H 17 126/63 95 11/13/21 04:00 11/13/21 04:00 11/13/21 04:00 11/13/21 04:00 11/13/21 08:00 <Chasidy Ames 11/13/21 10:07> - Constitutional no acute distress, average body habitus, cooperative <Chasidy Ames 11/13/21 10:28> - Routine HEENT Exam Head: Present: normocephalic, atraumatic <Chasidy Ames 11/13/21 10:28> Eye: Present: EOMI, PERRL <Chasidy Ames 11/13/21 10:28> ENT: Present: mucous membranes moist <Chasidy Ames 11/13/21 10:28> - Routine Neck Exam Present: supple, full ROM, trachea midline. Absent: JVD, lymphadenopathy <Chasidy Ames 11/13/21 10:28> - Routine Respiratory Exam Absent: accessory muscle use, respiratory distress <Chasidy Ames 11/13/21 10:28> Comments: Symmetric chest movement, able to speak in complete sentences <Chasidy Ames 11/13/21 10:28> - Routine Cardiovascular Exam Present: RRR. Absent: JVD <Chasidy Ames 11/13/21 10:28> Comments: Normal peripheral pulses <Chasidy Ames 11/13/21 10:28> - Routine Abdominal Exam Present: soft. Absent: tenderness <Chasidy Ames 11/13/21 10:28> - Routine Extremities Exam Present: pulses intact, normal capillary refill. Absent: edema, calf tenderness <Chasidy Ames 11/13/21 10:28> Comments: Upon examination of the lower extremities: The limb lengths are equal. Upon examination of the left hip, dressings present are clean, dry, and intact. No evidence of bleeding or drainage noted. The surgical incision appears clean, dry, and healthy. No induration, erythema, bleeding, drainage, or other signs of infection noted. The left hip and proximal femur are tender to palpation as to be expected at this stage. Attempted movements of the left hip are painful. Thigh and calf are soft and nontender; Homans' sign is negative. No clinical evidence of DVT noted. Posterior tibial pulse 2+; capillary refill is brisk. Sensation to light touch is grossly intact throughout. Patient is actively mobilizing the knee, foot, and toes. Diagnostic imaging: Postoperative x-rays performed yesterday 11/12/2021 at [facility] reviewed along with radiologist's report. X-ray of the left hip demonstrates a left hip status post bipolar hemiarthroplasty with orthopedic components in satisfactory alignment. No evidence of orthopedic complications noted. Radiologist's report is as follows: FINDINGS: Bones/joints: Left hip hemiarthroplasty. No acute fracture. Soft tissues: Postoperative changes. IMPRESSION: Status post left hemiarthroplasty. Electronically signed b
--- NOTE | 2021-11-13 10:40 | HMH.OTEV ---
OT Inpatient Evaluation Rehab OT IP Evaluation Start: 11/12/21 17:27 Freq: ONCE Status: Complete Protocol: Document 11/13/21 10:27 RALF (Rec: 11/13/21 10:40 RALF [id number]) Rehab OT IP Assessment Subjective History Patient is an 81-year-old male who sustained a displaced intracapsular fracture neck of left femur following a fall at home after slipping on ice. A hemiarthroplasty is indicated to relieve pain and restore function. The operation is clinically indicated and is the standard of care for this type of fracture. Please refer to orthopedic consult note for full details. Operative findings:: Displaced sub capital femoral neck fracture of the left hip as noted on the preoperative hip x-rays. The articular cartilage of the acetabulum is well preserved without evidence of significant arthritis. The proximal femur bone quality is good. Subjective I can try to get up. Instructed Patient on proper hand and foot placement to complete supine->sit @ EOB requiring Mod A x2. Patient demonstrated good dynamic sitting balance while at EOB. No LOB noted. Educated Patient re: weight bearing status and posterior hip precautions along with wearing wedge pillow while in bed. Teach back successful. Instructed Patient on safety awareness during ambulation task within room with usage of RW up to 25ft requiring Min A x2. Instructed Patient back in bed as requested and to follow hip precautions. There was not an appropriate chair in room for patient to sit in. Mady
--- NOTE | 2021-11-13 10:49 | HMH.ANESII ---
[facility] Anesthesia Record Part II Discharge Time: 17:20 Destination: Obstetric PACU nurse assessment reviewed?: Yes Patient Condition:: Good Anesthesia Complications:: None Swallowing reflex intact?: Yes Cyanosis?: No Blood Pressure: 129/53 Pulse Rate: 69 Temperature: 98.4 F Mental Status: Alert & Oriented Pain level:: 0 Nausea and/or vomitting:: None Intake, IV Amount: 0
--- NOTE | 2021-11-13 13:39 | HMH.PTEV ---
Physical Therapy Evaluation Rehab PT IP Evaluation Start: 11/12/21 17:27 Freq: ONCE Status: Active Protocol: Document 11/13/21 13:35 PHORNE (Rec: 11/13/21 13:38 PHORNE [id number]) Subjective/History History History 81 yowm adm to [facility] after fall at home with L hip fx, now S/P L RANI. He reports eh lives with his spouse, 4-5 steps to enter the home and he was independent with all mobility prior to adm. Subjective Subjective He reports feeling better this afternoon after having some mild nausea after getting up with OT this morning. Rehab PT IP Eval Objective Appearance Patient Behavior Appropriate Patient Orientation Person,Place,Time Difficulty following instructions none Speech Pattern Clear Ambulation Patient Able to Ambulate Yes Ambulation Observation IP General Gait Pattern Observation Antalgic Gait Ambulation Distance (feet) 15 Ambulation Assistive Device Rolling Walker Ambulation Ability Minimal x 1 (25% assist) Balance Ability to Arise Able, uses arms to help Sitting Balance Steady, safe Standing Balance Steady, wide stance Dynamic Sitting Balance Ability Good Dynamic Standing Balance Ability Fair Transfers Bed Transfer Ability Minimal x 1 (25% assist) Chair Transfer Ability Minimal x 1 (25% assist) Sit to Stand Bed Transfer Ability Minimal x 1 (25% assist) Sit to Stand Chair Transfer Ability Minimal x 1 (25% assist) Rehab PT IP prob,goals,plan Problems Date of Evaluation: 11/13/21 PT IP Problems Bed Mobility,Transfers,Gait Rehab Potential Rehab Potential Good Plan PT Intervention Plan Bed Mobility,Transfers,Gait, Self care,Therapeutic Exercise PT Plan Frequency BID Duration LOS Discharge Goals Bed Transfer Ability Contact Guard/Hand Hold Sit to Stand Chair Transfer Ability Contact Guard/Hand Hold Ambulation Assistive Device Rolling Walker Ambulation Distance (feet) 40 Discharge Plan PT Discharge Plan Pt is currently most appropriate for rehab placement once medically stable as he was independent prior to adm and would be better served to return home independent with all mobility. G -code Required No Eval Com
--- NOTE | 2021-11-13 14:14 | CARE MANAGER ---
Addendum entered by Marzena Celestin RN 11/13/21 21:47: [facility] will come Tuesday morning to evaluate patient for rehab at [facility]. Addendum entered by Marzena Celestin RN 11/13/21 15:48: Sent patient information to [facility]. Della from there states they are not in network with patient's insurance. Spoke with patient and . Patient would rather go home, but is agreeable to short term rehab. Information faxed to [facility] per their request. If [facility] is not able to accept patient next choice is [facility]. MAURA Echols, BSN Original Note: Spoke with patient and his regarding discharge plans, patient wishes to return home with home health. Did tell patient that PT recommendation is for SNF care for a couple of weeks. Did tell both patient and that discharge is likely within the next day or so both said they would like to discuss options and will let staff know.
--- NOTE | 2021-11-13 16:10 | PC.NURSE ---
dr. perkins in room- changed dressing to left hip. pt tolerated well. gave orders to stop fluids. no other orders.
--- NOTE | 2021-11-13 16:12 | PC.NURSE ---
reassessment completed. no changes. patient has ambulated a few times, sat in chair for almost 2 hours today. dressing to left hip c/d/i. wedge in place while in bed. pulses 2+, no edema. patient has done well with pain management today. urine output on low side since removal of cath- will continue with fluids. lungs cta and bowel hyperactive. appetite was good today. using incentive spirometer well. call light within reach.
--- NOTE | 2021-11-14 01:24 | PC.NURSE ---
pt reports trying to void in urinal with multiple attempts and is unable to. Pt reports feeling the urge to go and pressure to go but cannot. Pt assisted to standing position and was unsuccessful to void. Pt bladder is distended, pt only able to void a dribble this shift. Attempted to in and out cath pt with unsuccessful attempt, resistance met and small blood clot noted in catheter. ER staff coming to assist with coude cath placement.
--- NOTE | 2021-11-14 02:10 | PC.NURSE ---
Dr. Garcia at the bedside placing munoz catheter. tubing draining dark yellow urine with small blood clot noted. Pt tolerated placement well
[2021-11-14 03:04] LABS: Microscopic, Urine URINE MICROSCOPIC (MICROSCOPIC)
[2021-11-14 03:06] LABS: Appearance,Urine CLEAR (Clear); Bilirubin,Urine Negative (Negative); Blood, Urine 3+ (Negative); Color,Urine YELLOW (Yellow); Glucose,Urine (UA) Negative (Negative); Ketones,Urine Negative (Negative); Leukocyte Esterase,Urine Negative (Negative); Nitrate,Urine Negative (Negative); Protein,Urine Negative (Negative); Specific Gravity, Urine <= 1.005 (1.005-1.030); Urobilinogen,Urine 0.2 EU/dl (0.2)
[2021-11-14 03:11] LABS: RBC,Urine 20-50 #/hpf (0-3)
[2021-11-14 04:00] VITALS: BP 122/64; PULSE 83; RESP 16; TEMP 37; O2SAT 97
--- NOTE | 2021-11-14 05:02 | PC.NURSE ---
Pt has slept in intervals this shift. BLT lungs CTA, bowel sounds present in all 4 quadrants. Pt is on RA, IV patent. Pt had distended abdomen this shift with tightness and pressure, pt attempted to void multiple attempts and was unable to, munoz placed earlier in the shift, catheter patent and draining red tinged urine. Pt medicated per MAR for pain this shift. Pt denies SOA, N/V, headache or abdominal pain at this time.
[2021-11-14 08:00] VITALS: BP 112/56; PULSE 84; RESP 18; TEMP 36.8; O2SAT 94
--- NOTE | 2021-11-14 08:11 | P.PN_ITS ---
Internal Medicine - PN: Subj *Date: 11/14/21 *Time: 08:11 Interval history: Patient has no complaints this morning. Sheth catheter was removed yesterday but was required to be reinserted overnight with immediate drainage of 1200 mL of urine. PT has recommended SNF Exam Vital signs and Labs for Last 24 Hours: Temp Pulse Resp BP Pulse Ox 98.6 F 83 16 122/64 97 11/14/21 04:00 11/14/21 04:00 11/14/21 04:00 11/14/21 04:00 11/14/21 04:00 Laboratory Results - last 24 hr 11/13/21 06:33: Total Counted 100, Neutrophils % (Manual) 83 H, Lymphocytes % (Manual) 7 L, Monocytes % (Manual) 10 H, Platelet Estimate Normal, RBC Morphology Normal 11/14/21 02:15: Urine Color Yellow, Urine Appearance Clear, Urine pH 6.0, Ur Specific [place] <= 1.005, Urine Protein Negative, Urine Glucose (UA) Negative, Urine Ketones Negative, Urine Blood 3+, Urine Nitrate Negative, Urine Bilirubin Negative, Urine Urobilinogen 0.2, Ur Leukocyte Esterase Negative, Urine RBC 20- 50 I & O for Last 24 hours: Intake & Output 11/11/21 11/12/21 11/13/21 11/14/21 11:59 11:59 11:59 11:59 Intake Total 120 / 120 1999 / 1999 120 / 120 Output Total 1000 / 1000 1300 / 1300 2029 / 2029 Balance -880 / -880 700 / 700 -1910 / -1910 Weight 167 lb 5.294 oz 167 lb 5.294 oz - Constitutional no acute distress - *Routine Respiratory Exam Present: CTA bilaterally - *Routine Cardiovascular Exam Present: RRR - *Routine Abdominal Exam Present: soft, normoactive bowel sounds. Absent: tenderness Assessment and Plan (1) Closed displaced fracture of left femoral neck Status: Acute Category: Medical Code(s): S72.002A - Fracture of unspecified part of neck of left femur, initial encounter for closed fracture (2) Essential hypertension Status: Acute Category: Medical Code(s): I10 - Essential (primary) hypertension (3) CAD (coronary artery disease) Status: Acute Category: Medical Code(s): I25.10 - Atherosclerotic heart disease of [place] coronary artery without angina pectoris (4) BPH loc w urin obs/LUTS Status: Acute Category: Medical Code(s): N40.1 - Benign prostatic hyperplasia with lower urinary tract symptoms - Assessment and plan all Dx Assessment and Plan for all problems:: 1. Continue PT while inpatient 2. At present patient is agreeable to short-term SNF placement for rehabilitation. [facility] will be evaluating the patient on Tuesday. 3. Maintain Sheth catheter. Start Flomax
--- NOTE | 2021-11-14 15:32 | PC.NURSE ---
Routine reassessment completed. Pt. tolerated well. Urine noted to be dark red in munoz bag and dark yellow in tubing. No further acute changes noted. Dressing remains C/D/I at left hip. Pt. reports pain down to 2/10. denies further needs, will continue to monitor.
[2021-11-14 15:56] VITALS: BP 101/50; PULSE 73; RESP 18; TEMP 36.7; O2SAT 97
[2021-11-14 19:37] VITALS: BP 92/53; PULSE 73; RESP 17; TEMP 36.6; O2SAT 95
[2021-11-14 20:00] VITALS: O2SAT 95
--- NOTE | 2021-11-14 20:23 | PC.NURSE ---
Addendum entered by Laney Hillman RN 11/14/21 21:52: WEDGE REMAINS BETWEEN PT LEGS ORDERED Original Note: ASSESSMENT DONE AT THIS TIME.LUNGS CLEAR ALL FRONT,BOWEL SOUNDS NORMAL,PT REPORTS PASSING GAS BUT NO BOWEL MOVEMENT,LEFT HIP DRESSING C,D,I.FELIX CATH PATENT AND DRAINING BLOODY URINE,PT HAS PROSTATE ISSUES AND WITH BEING RECATHED LAST NIGHT AND HAVING 1200ML RETURN,BLOOD WAS NOTED.PT DENIES ANY PAIN AT THIS TIME,REPORTS PAIN ONLY WITH MOVING,HE SAID IF HE NEEDED ANY PAIN MEDICINE HE WOULD RING,CALL LIGHT IN REACH,PT USED HIS INCENTIVE SPIROMETER AND WAS ABLE TO ACHIEVE 2500ML
[2021-11-15 04:00] VITALS: BP 123/53; PULSE 77; RESP 18; TEMP 37.1; O2SAT 99
--- NOTE | 2021-11-15 04:30 | PC.NURSE ---
NO ACUTE CHANGES FROM PREVIOUS ASSESSMENT,LUNGS CLEAR ALL FRONT,RESP.EVEN AND UNLABORED,BOWEL SOUNDS NORMAL,FELIX CATH PATENT AND DRAINING DARK YELLOW URINE.BLOOD TINGED IN FELIX BAG.DRESSING TO LEFT HIP C,D,I,PT DENIES ANY PAIN AT THIS TIME,IV IN LAC FLUSHED WITHOUT DIFF.WEDGE REMAINS BETWEEN PT'S LEGS.LEGS WARM AND PEDAL PULSES NOTED
--- NOTE | 2021-11-15 07:23 | P.PN_ITS ---
Internal Medicine - PN: Subj *Date: 11/15/21 *Time: 07:23 Interval history: No acute events overnight. Sheth catheter remains in place and urine which was once blood-tinged is clearing. Patient reports pain is controlled. Patient ambulated in his room with physical therapy yesterday. Nursing staff reports patient has not had a bowel movement since admission. Patient denies abdominal pain Exam Vital signs and Labs for Last 24 Hours: Temp Pulse Resp BP Pulse Ox 98.7 F 77 18 123/53 L 99 11/15/21 04:00 11/15/21 04:00 11/15/21 04:00 11/15/21 04:00 11/15/21 04:00 I & O for Last 24 hours: Intake & Output 11/12/21 11/13/21 11/14/21 11/15/21 11:59 11:59 11:59 11:59 Intake Total 120 / 120 2000 / 2000 360 / 360 980 / 980 Output Total 1000 / 1000 1300 / 1300 2530 / 2530 2200 / 2200 Balance -880 / -880 700 / 700 -2170 / -2170 -1220 / -1220 Weight 167 lb 5.294 oz 167 lb 5.294 oz Narrative: Appears comfortable. Lungs are clear. Heart has a regular rate and rhythm. Abdomen is soft and nontender Assessment and Plan (1) Closed displaced fracture of left femoral neck Status: Acute Category: Medical Code(s): S72.002A - Fracture of unspecified part of neck of left femur, initial encounter for closed fracture (2) Essential hypertension Status: Acute Category: Medical Code(s): I10 - Essential (primary) hypertension (3) CAD (coronary artery disease) Status: Acute Category: Medical Code(s): I25.10 - Atherosclerotic heart d isease of [place] coronary artery without angina pectoris (4) BPH loc w urin obs/LUTS Status: Acute Category: Medical Code(s): N40.1 - Benign prostatic hyperplasia with lower urinary tract symptoms - Assessment and plan all Dx Assessment and Plan for all problems:: 1. Continue PT while awaiting SNF eval tomorrow 2. Urology will be consulted for patient's urinary retention due to BPH with LUTS that required reinsertion of Sheth catheter
[2021-11-15 08:00] VITALS: BP 118/58; PULSE 82; RESP 18; TEMP 36.9; O2SAT 96
[2021-11-15 16:00] VITALS: BP 113/58; PULSE 78; RESP 18; TEMP 36.9; O2SAT 95
--- NOTE | 2021-11-15 16:53 | PC.NURSE ---
Routine reassessment completed. Pt. reports pain at 4/10. See EMAR for medications given. Pt. has passed flatus and small hard bowel movement this shift. No further acute changes noted from previous assessment. Pt. denies needs, will continue to monitor.
[2021-11-15 21:00] VITALS: O2SAT 97
--- NOTE | 2021-11-15 21:00 | PC.NURSE ---
PT ASSESSMENT DONE AT THIS TIME,PT HAD JUST RETURNED TO BED FROM CHAIR,LUNGS CLEAR THROUGHOUT.RESP.EVEN AND UNLABORED.BOWEL SOUNDS NORMAL,PT HAD CONSTIPATION TODAY AND IS NOW TAKING STOOL SOFTENERS AND MIRALAX DAILY,FELIX CATH PATENT AND STILL DRAINING A LITTLE BLOOD TINGED URINE.LEFT HIP DRESSING C,D,I.PT DID WELL RETURNING TO BED WITH WALKER.WEDGE PLACED ORDERED,PT RATES PAIN A 4 ON SCALE OF 0-10,WILL MEDICATE.V/S STABLE
[2021-11-15 21:07] VITALS: BP 149/68; PULSE 76; RESP 19; TEMP 36.9; O2SAT 97
--- NOTE | 2021-11-15 22:00 | PC.NURSE ---
PT SITTING UP IN BED WATCHING T.V.PT DENIES ANY PAIN NOW.OFFERED A SNACK AND PT DECLINED.NO NEEDS OR CONCERNS VOICED,CALL LIGHT WITHIN REACH
--- NOTE | 2021-11-16 00:54 | PC.NURSE ---
pt had accidently pulled the call light out of the wall by letting the bed lay all the way down,he said he had just woke up and could not go back to sleep,asked if he had any pain and he said no,offered a warm blanket and he declined,no other needs or concerns voiced
[2021-11-16 04:00] VITALS: BP 130/60; PULSE 80; RESP 19; TEMP 37; O2SAT 98
--- NOTE | 2021-11-16 04:14 | PC.NURSE ---
PT HAS SLEPT WELL TONIGHT,LUNGS CLEAR ALL FRONT THIS MORNING,RESP.EVEN AND UNLABORED.BOWEL SOUNDS X 4 QUADS,FELIX CATH STILL DRAINING BLOOD TINGED URINE TOTAL THUS FAR THIS SHIFT 1450ML,PT HAS BEEN MEDICATED X 2 THIS SHIFT WITH NORCO 5 MG ,PT REPORTS A DULL PAIN AND MORE SO WITH MOVEMENT.LEFT HIP DRESSING C.D.I.SALINE LAOCK FLUSHED WITHOUT DIFF.CALL LIGHT IN REACH AND BED IN LOW POSTION
--- NOTE | 2021-11-16 06:39 | HMH.ACPN2 ---
Internal Medicine - PN: Subj *Date: 11/16/21 *Time: 06:39 Interval history: Patient without complaints. No problems over the last 24 hours. Patient is ambulated in his room with use of walker. Exam Vital signs and Labs for Last 24 Hours: Temp Pulse Resp BP Pulse Ox 98.6 F 80 19 130/60 98 11/16/21 04:00 11/16/21 04:00 11/16/21 04:00 11/16/21 04:00 11/16/21 04:00 I & O for Last 24 hours: Intake & Output 11/13/21 11/14/21 11/15/21 11/16/21 11:59 11:59 11:59 11:59 Intake Total 1999 / 1999 360 / 360 1220 / 1220 1720 / 1720 Output Total 1300 / 1300 2530 / 2530 3400 / 3400 2950 / 2950 Balance 700 / 700 -2170 / -2170 -2180 / -2180 -1230 / -1230 Weight 167 lb 5.294 oz Narrative: Patient looks comfortable in bed. Lungs are clear. Heart has a regular rate and rhythm. Abdomen is soft and nontender. Assessment and Plan (1) Closed displaced fracture of left femoral neck Status: Acute Category: Medical Code(s): S72.002A - Fracture of unspecified part of neck of left femur, initial encounter for closed fracture (2) Essential hypertension Status: Acute Category: Medical Code(s): I10 - Essential (primary) hypertension (3) CAD (coronary artery disease) Status: Acute Category: Medical Code(s): I25.10 - Atherosclerotic heart disease of [place] coronary artery without angina pectoris (4) BPH loc w urin obs/LUTS Status: Acute Category: Medical Code(s): N40.1 - Benign prostatic hyperplasia with lower urinary tract symptoms - Assessment and plan all Dx Assessment and Plan for all problems:: 1. SNF eval today and patient may require insurance approval before transfer 2. Urology consultation for patient's postop urinary retention and BPH. Maintain Sheth catheter at this time. Flomax was started on Tuesday
--- NOTE | 2021-11-16 06:41 | HMH.DCSUM ---
General - General Admission date:: 11/11/21 Discharge date: 11/16/21 HPI HPI: 81 year old male fell at home after slipping on ice and sustained left hip injury. Evaluttion in ER revealed subcapital left femoral neck fracture. He has been admitted with planned surgical correction. Hospital Course Hospital Course: Patient was admitted in the following day underwent uncemented bipolar hemiarthroplasty of the left hip. Postoperatively patient had PT eval and SNF for short-term rehab was recommended before patient return to home. Patient was accepted by [facility]. Munoz catheter was removed 24 hours after surgery but patient had difficulty urinating. Munoz catheter was reinserted after being out for approximately 12 to 16 hours with production of 1200 mL of urine. Patient has enlarged prostate on CT scan. Urology was consulted for recommendations and management.Patient will be discharged with munoz catheter in place and will f/u with Urology as OP for a voiding trial. Objective Vital signs: Temp Pulse Resp BP Pulse Ox 98.6 F 80 19 130/60 98 11/16/21 04:00 11/16/21 04:00 11/16/21 04:00 11/16/21 04:00 11/16/21 04:00 no acute distress - *Routine Respiratory Exam Present: CTA bilaterally - *Routine Cardiovascular Exam Present: RRR - *Routine Abdominal Exam Present: soft, normoactive bowel sounds. Absent: tenderness DS: Diagnosis - Discharge Diagnosis (1) Closed displaced fracture of left femoral neck Status: Acute (2) Essential hypertension Status: Acute (3) CAD (coronary artery disease) Status: Acute (4) BPH loc w urin obs/LUTS Status: Acute Discharge Plan - Patient Discharge Instructions ACTIVITY: Continue current activity DIET: continue same diet Patient Instructions: DI for Hip Fracture, DI for Hip Replacement, DI for Surgical Site Infection, Surgical Site Infection, DI for Postoperative Pain, Catheter-associated Urinary Tract Infection - Follow up Plan Follow up with: Hany Borden MD [Staff Physician] - 11/26/21 9:45 am (arrive 30 min before appt for x ray's) Donnie Franco MD [Staff Physician] - 11/26/21 11:15 am Disposition: Xfer SNF Condition at discharge:: Improved Home Medications: Home Medications Medication Instructions Recorded Confirmed Type aspirin 81 mg tablet,delayed 81 mg PO DAILY 09/12/18 11/11/21 History release losartan 100 mg tablet 100 mg PO DAILY 09/12/18 11/11/21 History simvastatin 40 mg tablet 40 mg PO HS 09/12/18 11/12/21 History hydroCHLOROthiazide 12.5 mg PO DAILY 11/12/21 11/12/21 History [Hydrochlorothiazide 12.5mg Tab] Aspirin [Aspirin 325mg Tab] 325 mg PO DAILY #30 tab 11/16/21 Rx Hydrocod/Acet 5/325 mg [[place] 1 tab PO Q4HP PRN #60 tab 11/16/21 Rx 5/325mg tablet] Tamsulosin HCl [Flomax 0.4mg 0.4 mg PO HS #30 cap 11/16/21 Rx capsule] Prescriptions/Medication Reconciliation: New Hydrocod/Acet 5/325 mg [[place] 5/325mg tablet] 1 tab PO Q4HP PRN #60 tab PRN Reason: Mild To Moderate Pain Aspirin [Aspirin 325mg Tab] 325 mg PO DAILY #30 tab Tamsulosin HCl [Flomax 0.4mg capsule] 0.4 mg PO HS #30 cap Continued simvastatin 40 mg tablet 40 mg PO HS losartan 100 mg tablet 100 mg PO DAILY aspirin 81 mg tablet,delayed release 81 mg PO DAILY hydroCHLOROthiazide [Hydrochlorothiazide 12.5mg Tab] 12.5 mg PO DAILY - Problem Reconciliation Problems Reviewed?: Yes
[2021-11-16 08:00] VITALS: BP 122/67; PULSE 86; RESP 18; TEMP 37.1; O2SAT 97
--- NOTE | 2021-11-16 08:00 | SW/DCPLANNER ---
Addendum entered by Sherin Mckinnon 11/16/21 12:40: COVID swab is negative and discharge summary is completed: all information has been faxed to Constance merino/ [facility]. Constance has stated that bus will be available at 4PM for transfer: I will relay information to patients nurse. Original Note: Patient information was faxed to [facility] on Tuesday regarding this patients need for SNF level of care. Constance merino/ [facility] Rincon will be at [facility] this AM to evaluate this patient. I will follow up with Constance once she evaluates this patient. Patient will require a COVID swab prior to discharge if accepted to [facility].
--- NOTE | 2021-11-16 08:28 | PC.NURSE ---
0845 urology notified of consult
--- NOTE | 2021-11-16 08:31 | PC.NURSE ---
7141 SHAHAB BOUCHER FROM [facility] AT BEDSIDE TO ASSESS PT FOR PLACEMENT
[2021-11-16 10:29] LABS: Coronavirus 19, PCR Not Detected (NotDetected); Influenza A, PCR Not Detected (NotDetected); Influenza B, PCR Not Detected (NotDetected)
--- NOTE | 2021-11-16 11:34 | PC.NURSE ---
DR. TOMPKINS SPEAKING WITH PT AND FAMILY
--- NOTE | 2021-11-16 12:50 | HMH.CONS ---
*Admission Date: 11/11/21 *Reason for consult:: Postop urinary retention *History of present illness: Patient is an 81-year-old white male referred for postoperative urinary retention. He underwent left hip surgery on November 12 after a fall. He had a catheter in for 24 hours and then it was removed but patient was unable to void and after 12 hours the catheter was replaced with a 1200 cc residual. It was replaced the urine was reportedly bloody but has since cleared. Patient states he does have some urinary slowing at baseline but denies any significant urinary frequency, urgency, nocturia or incontinence. Patient had a CT scan in 2019 that showed an enlarged 6 cm prostate. He is not on prostate medication at home. He denies a history of hematuria or urinary tract infections. [facility] History Medical History: Reports:: BPH, Coronary Artery Disease (CABG 1990), Hyperlipidemia, Hypertension Denies:: Diabetes Mellitus Type 1, Diabetes Mellitus Type 2, Internal Pacemaker, Lung Disease, Seizures *Have you ever received a pneumonia vaccine?: Yes *Have you received a flu vaccine this season?: Yes Other Medical History: Reports: Arthritis Anesthesia experience/problems:: None Other Surgeries: Yes: CABG, Colonoscopy, Other (back). No: Pacemaker - *Social History Smoking Status: Former smoker Alcohol Intake: never Substance Use Type: denies use *Occupational Status:: retired *Travel in the last 8 weeks: None Family Hx:: Heart Attack Review of Systems - Review of Systems Review of systems:: pertinent systems reviewed and negative unless documented below - *Genitourinary Denies difficulty urinating, Denies blood in urine, Denies frequent nighttime urination, Denies decreased urination, Denies urinary frequency, Denies urinary incontinence - *Neurologic Reports abnormal walking, Denies abnormal hearing, Denies abnormal movements, Denies abnormal speech, Denies behavioral changes, Denies confusion, Denies dizziness, Denies headache(s), Denies loss of vision, Denies numbness, Denies sensory deficit, Denies tingling, Denies weakness Meds Home Medications Medication Instructions Recorded Confirmed Type aspirin 81 mg tablet,delayed 81 mg PO DAILY 09/12/18 11/11/21 History release losartan 100 mg tablet 100 mg PO DAILY 09/12/18 11/11/21 History simvastatin 40 mg tablet 40 mg PO HS 09/12/18 11/12/21 History hydroCHLOROthiazide 12.5 mg PO DAILY 11/12/21 11/12/21 History [Hydrochlorothiazide 12.5mg Tab] Aspirin [Aspirin 325mg Tab] 325 mg PO DAILY #30 tab 11/16/21 Rx Hydrocod/Acet 5/325 mg [[place] 1 tab PO Q4HP PRN #60 tab 11/16/21 Rx 5/325mg tablet] Tamsulosin HCl [Flomax 0.4mg 0.4 mg PO HS #30 cap 11/16/21 Rx capsule] Allergies Allergy/AdvReac Type Severity Reaction Status Date / Time codeine [CODEINE] Allergy Unknown I-RASH Verified 09/18/19 11:10 Exam Vital signs and Labs for Last 24 Hours: Temp Pulse Resp BP Pulse Ox 98.7 F 86 18 122/67 97 11/16/21 08:00 11/16/21 08:00 11/16/21 08:00 11/16/21 08:00 11/16/21 08:00 Laboratory Results - last 24 hr 11/16/21 10:00: SARS-CoV-2 (PCR) Not detected, Influenza A Untype (PCR) Not detected, Influenza Type B (PCR) Not detected I & O for Last 24 hours: Intake & Output 11/13/21 11/14/21 11/15/21 11/16/21 23:59 23:59 23:59 23:59 Intake Total 120 / 120 600 / 600 1580 / 1580 1000 / 1000 Output Total 1330 / 1330 4000 / 4000 3650 / 3650 1000 / 1000 Balance -1210 / -1210 -3400 / -3400 -2070 / -2070 0 / 0 Weight 75.9 kg - Constitutional no acute distress - *Routine HEENT Exam Head: Present: normocephalic Eye: Present: EOMI, PERRL ENT: Present: mucous membranes moist - *Routine Neck Exam Present: supple. Absent: lymphadenopathy - *Routine Respiratory Exam Absent: accessory muscle use - *Routine Cardiovascular Exam Absent: JVD - *Routine Abdominal Exam Present: soft. Absent: tenderness - *Routine Extremities Ex
--- NOTE | 2021-11-16 14:06 | PC.NURSE ---
REPORT GIVEN TO BONIFACIO AT COUNT INCLUDES THE [facility]
== END 2021-11-16 15:30 | DRG 522 ==
LOC: ER 13:45 → ICU 15:42 → OB 11-12 21:33
PROVIDERS: Orthopaedic Surgery; Physician Assistant Surgical; Admitting Provider Family Medicine; Emergency Provider Emergency Medicine; PCP Family Medicine; Visit Provider Family Medicine
PROC: 0SRS0JA Replacement of Left Hip Joint, Femoral Surface with Synthetic Substitute, Uncemented, Open Approach (ICD-10-PCS; principal; 2021-11-12 12:00)
DX: S72.012A Unspecified intracapsular fracture of left femur, initial encounter for closed fracture (principal); I25.10 Atherosclerotic heart disease of native coronary artery without angina pectoris; I10 Essential (primary) hypertension; N40.1 Benign prostatic hyperplasia with lower urinary tract symptoms; E11.9 Type 2 diabetes mellitus without complications; W00.0XXA Fall on same level due to ice and snow, initial encounter; Y92.014 Private driveway to single-family (private) house as the place of occurrence of the external cause; Z79.899 Other long term (current) drug therapy; Z95.1 Presence of aortocoronary bypass graft; R33.8 Other retention of urine
CPT/HCPCS: 27125; 36415; 71045; 73502; 80053; 81001; 83036; 85007; 85025; 85610; 85730; 86850; 93005; 96374; 96375; 97116; 97162; 97165; 97530; 97535; 99284; C1713; C1776; C9803; J2704; U0003; U0005

== ENCOUNTER → 2021-11-26 09:11 | Outpatient (CLI) | payer MEDICARE, SELFPAY ==
--- NOTE | 2021-11-26 09:19 | XR_ITS ---
FINAL REPORT CLINICAL HISTORY: sp LT hip hemiarthroplasty COMPARISON: November 12, 2021 FINDINGS: 2 views of the left hip with an AP pelvis were obtained. There is no acute fracture or dislocation. There has been total left hip arthroplasty. There is good anatomic alignment. There are no soft tissue abnormalities. IMPRESSION: Left hip arthroplasty in good anatomic alignment. Reviewed, Interpreted and Dictated by Estrada Bowman MD Transcribed by Hang Landry Authenticated by Estrada Bowman MD on 11/26/2021 12:52:[address] [facility]
== END ==
PROVIDERS: PCP Family Medicine; Visit Provider Orthopaedic Surgery
DX: Z09 Encounter for follow-up examination after completed treatment for conditions other than malignant neoplasm (principal); S72.002D Fracture of unspecified part of neck of left femur, subsequent encounter for closed fracture with routine healing
CPT/HCPCS: 73502

== ENCOUNTER 2021-11-27 09:50 | Emergency (ER) | payer MEDICARE, SELFPAY ==
[2021-11-27 09:51] VITALS: BP 143/69; PULSE 94; RESP 18; TEMP 36.8; O2SAT 98; BMI 24.1
--- NOTE | 2021-11-27 10:21 | PC.NURSE ---
SPOKE WITH DR TOMPKINS'S OFFICE, THEY ARE GOING TO BRING A BLADDER SCANNER AND THEN DECIDE IF PT NEEDS A FELIX OR STRAIGHT CATH.
--- NOTE | 2021-11-27 10:56 | HMH.EDUROGM ---
ED Disposition Clinical Impression: Acute retention of urine Disposition: Home, Self-Care Condition on Discharge: Good Instructions: DI for Urinary Retention in Men Referrals: Sukumar Mckinley MD [Primary Care Provider] - Donnie Tompkins MD [Staff Physician] - 12/03/21 - Critical Care Critical Care Time: No Attestation: On 11/27/21, the high probability of a clinically significant, sudden or life threatening deterioration of the following system(s) required my full and direct attention, intervention and personal management. The time I documented below is in addition to time spent performing reported procedures but includes the following listed in this critical care notation. Medical Decision Making - Medical Records Medical records reviewed: Yes: I reviewed the patient's medical records. - [place] Inquiry Pt receiving controlled substance: No Vital Signs: 11/27/21 09:51 Temperature 98.2 F Temperature Source Oral Pulse Rate [Radial] 94 H Respiratory Rate 18 Blood Pressure [Right Arm] 143/69 H Blood Pressure Mean [Right Arm] 93 Blood Pressure Position [Right Arm] Sitting 02 Sat by Pulse Oximetry 98 Oxygen Delivery Method Room Air - Lab Data Lab Results 11/27/21 10:52: Urine Color Yellow, Urine Appearance Clear, Urine pH 6.0, Ur Specific [place] 1.020, Urine Protein Negative, Urine Glucose (UA) Negative, Urine Ketones Negative, Urine Blood 3+, Urine Nitrate Negative, Urine Bilirubin Negative, Urine Urobilinogen 0.2, Ur Leukocyte Esterase Negative Orders (Tests/Meds): ORDERS Category Date Time Status Urinalysis and Microscopic Stat Lab 11/27/21 10:52 Results Medical Decision Narrative: 81-year-old male presented to the emergency department with some urinary retention. Patient lost a history of BPH and has been struggling with urinary retention issues. We did perform bedside bladder scan which revealed over 800 cc of fluid. We did consult urology at this time. We did place a Sheth catheter under sterile conditions by nursing staff. Patient has been scheduled to follow-up on December [address] Davis. He will maintain this appointment. Given strict return precautions. Verbalized understanding. Male Urogenital HPI - General Chief complaint: Urogenital-Male Stated complaint: cant urinate Time Seen by Provider: 11/27/21 10:00 Mode of Arrival: Ambulatory Limitations: No Limitations Description of Symptoms (Recalled from ER Triage Doc. by RN): TO ED PER PVT CAR WITH C/O URINARY RETENTION PT D/ANTONIO FROM REHAB FACILITY YESTERDAY. PT HAD AN INDWELLING CATH ON 11/12 FOR HIP SURGERY. SON REPORTS PT'S CATH WAS D/ANTONIO YESTERDAY AND HAS NOT VOIDED SINCE IT WAS REMOVED. PT SEEN BY DR TOMPKINS YESTERDAY AND GIVEN INSTRUCTIONS ON SELF CATH. PT STATES HE TRIED THAT THIS AM WITH NO SUCCESS. PT DENIES FEVER, CHILLS, NAUSEA, VOMITING OR ABD PAIN - History of Present Illness HPI Narrative: This is a 81-year-old male presented to the emergency department with some urinary retention. The patient has been having issues with this since his surgery back on the . He was discharged from rehab facility and urinary catheter was ordered at this time. Patient states that he has not voided since last night. He feels a fullness in the suprapubic region. He denies any trauma to the area. He is not having any headache or change in vision. No focal weakness. No fevers or chills. No chest pain or shortness of breath. No vomiting or diarrhea. - Related Data Home Medications Medication Instructions Recorded Confirmed aspirin 81 mg tablet,delayed 81 mg PO DAILY 09/12/18 11/26/21 release losartan 100 mg tablet 100 mg PO DAILY 09/12/18 11/26/21 simvastatin 40 mg tablet 40 mg PO HS 09/12/18 11/26/21 hydroCHLOROthiazide 12.5 mg PO DAILY 11/12/21 11/26/21 [Hydrochlorothiazide 12.5mg Tab] Previous Rx's Medication Instructions Recorded Aspirin [Aspirin 325mg Tab] 325 mg PO DAILY #30 tab 11/16/21 Hydrocod/Acet
[2021-11-27 10:58] LABS: Microscopic, Urine URINE MICROSCOPIC (MICROSCOPIC)
[2021-11-27 11:00] LABS: Appearance,Urine CLEAR (Clear); Bilirubin,Urine Negative (Negative); Blood, Urine 3+ (Negative); Color,Urine YELLOW (Yellow); Glucose,Urine (UA) Negative (Negative); Ketones,Urine Negative (Negative); Leukocyte Esterase,Urine Negative (Negative); Nitrate,Urine Negative (Negative); Protein,Urine Negative (Negative); Urobilinogen,Urine 0.2 EU/dl (0.2)
--- NOTE | 2021-11-27 11:00 | PC.NURSE ---
FELIX PLACED WITH 900CC DARK URINE RETURN. LEG BAG APPLIED
[2021-11-27 11:12] LABS: Squamous Epithelial Cell,Urine Occasional #/hpf (0-5)
[2021-11-27 11:29] VITALS: BP 124/74; PULSE 78; RESP 16; TEMP 37; O2SAT 16
== END 2021-11-27 11:30 | disposition home or self-care (01) ==
PROVIDERS: Emergency Provider Emergency Medicine; PCP Family Medicine
DX: R33.8 Other retention of urine (principal); M96.89 Other intraoperative and postprocedural complications and disorders of the musculoskeletal system; I10 Essential (primary) hypertension; E78.5 Hyperlipidemia, unspecified; Z87.891 Personal history of nicotine dependence
CPT/HCPCS: 51702; 81001; 99283

== ENCOUNTER → 2021-12-01 10:41 | Outpatient (CLI) | payer MEDICARE, SELFPAY | LOC: COVID.OUT 10:42 → LAB 10:53 | PROVIDERS: PCP Family Medicine; Visit Provider Urology | DX: R33.9 Retention of urine, unspecified (principal); Z01.812 Encounter for preprocedural laboratory examination; Z11.52 Encounter for screening for COVID-19 | CPT/HCPCS: C9803; U0003; U0005 ==

== ENCOUNTER 2021-12-04 08:11 | Day surgery (SDC) | payer MEDICARE, SELFPAY ==
[2021-12-02 10:01] VITALS: BMI 23.7
[2021-12-04 08:31] VITALS: BP 134/67; PULSE 95; RESP 18; TEMP 36.8; O2SAT 98
[2021-12-04 09:21] VITALS: BP 112/67; PULSE 82; RESP 18; TEMP 36.8; O2SAT 96
--- NOTE | 2021-12-04 13:11 | P.OP_ITS ---
Date of procedure: 12/04/21 Pre-op Diagnosis:: BPH with urinary retention Post-op Diagnosis:: BPH with urinary retention Procedure performed:: Cystoscopy Surgeon:: Donnie Franco MD Anesthesia: local Estimated blood loss (mL): 0 Clinical Note:: 81-year-old white male with recent postop urinary retention after hip surgery. Sheth catheter was removed last week but he could not void and went back to the emergency room where an 800 cc residual was noted. His Sheth catheter was replaced and follows up for cystoscopic evaluation today. Operative findings:: Patient with large prostate and trilobar hyperplasia. He has some moderate trabeculation and cellule formation in the bladder. The ureteral orifices close to the median lobe. Operative note:: Patient taken to the cystoscopy suite after informed consent was obtained. On the stretcher he was prepped and draped in the standard surgical fashion and 2% lidocaine placed into the urethra and clamped. After 5 minutes the flexible cystoscope was introduced into the urethral meatus and passed to the prostatic urethra which showed trilobar hyperplasia. The bladder was entered and examined in a systematic fashion. There is evidence of cellule formation moderate trabeculation along the bladder base. No mucosal abnormalities were noted. The scope was retroflexed showing a moderate sized median lobe. The ureteral orifices were partially obscured and clear efflux of urine was noted. The scope removed and a 16 [place] Sheth catheter was replaced. The patient tolerated procedure well. We discussed the findings with the patient and their family in the postoperative area and transurethral resection of prostate was recommended. He will continue his Sheth catheter until time of treatment. Patient was started on finasteride prior to his TURP. Condition: stable Disposition: same day Specimens:: None Complications:: None
== END 2021-12-04 09:40 | disposition home or self-care (01) ==
PROVIDERS: PCP Family Medicine; Visit Provider Urology
DX: N40.1 Benign prostatic hyperplasia with lower urinary tract symptoms (principal); R33.8 Other retention of urine; I25.10 Atherosclerotic heart disease of native coronary artery without angina pectoris; E78.5 Hyperlipidemia, unspecified; I10 Essential (primary) hypertension; M19.90 Unspecified osteoarthritis, unspecified site; Z87.891 Personal history of nicotine dependence
CPT/HCPCS: 52000

== ENCOUNTER → 2021-12-22 09:05 | Outpatient (CLI) | payer MEDICARE, SELFPAY ==
--- NOTE | 2021-12-22 09:10 | XR_ITS ---
FINAL REPORT CLINICAL HISTORY: left hip fracture COMPARISON: November 26, 2021 FINDINGS: LEFT HIP Two views of the left hip including an AP pelvis demonstrate postoperative changes from left hip prosthesis. Anatomic alignment is maintained. No complication is identified. No soft tissue abnormality is seen. IMPRESSION: Postoperative changes as described. Reviewed, Interpreted and Dictated by Estrada Bowman MD Transcribed by Christie Baron Authenticated by Estrada Bowman MD on 12/22/2021 11:26:22 AM [facility][1]
== END ==
PROVIDERS: PCP Family Medicine; Visit Provider Orthopaedic Surgery
DX: S72.002A Fracture of unspecified part of neck of left femur, initial encounter for closed fracture (principal)
CPT/HCPCS: 73502

== ENCOUNTER → 2021-12-28 09:04 | Outpatient (CLI) | payer MEDICARE, SELFPAY ==
--- NOTE | 2021-12-28 09:04 | XR_ITS ---
FINAL REPORT TECHNIQUE: Bone mineral density was calculated of the lumbar spine, right hip and each forearm. CLINICAL HISTORY: . osteoporosis FINDINGS: Using L1-4, the bone mineral density of the spine is 0.995 g/cm2, corresponding to T-score of -0.9. Using the right hip, the bone mineral density of the femoral neck is 0.690 g/cm2, corresponding to a T-score of -1.8. Using the right forearm, the bone mineral density of the distal 1/3 is 0.806 g/cm2, corresponding to a T-score of -0.2. Using the left forearm, the bone mineral density of the distal 1/3 is 0.775 g/cm2, corresponding to a T-score of -0.8. NOTE: T-score: Standard deviation compared with peak bone mass of young adult mean. *Following the recommendations of the International Society of Bone densitometry, classification of hip BMD is based on the lower of two T-scores; total hip or femoral neck. IMPRESSION: Diminished bone mineral density of the right hip consistent with osteopenia. FRAX 10 year fracture risk is 23% for major osteoporotic fracture. Reviewed, Interpreted and Dictated by Alvino Higuera III, MD Transcribed by Christie Baron Authenticated by Alvino Higuera III, MD on 12/28/2021 11:17:14 AM [facility]
== END ==
PROVIDERS: PCP Family Medicine; Visit Provider Orthopaedic Surgery
DX: M81.0 Age-related osteoporosis without current pathological fracture (principal)
CPT/HCPCS: 77080

== ENCOUNTER → 2022-01-15 10:43 | Outpatient (CLI) | payer MEDICARE, SELFPAY ==
[2022-01-15 11:55] LABS: Basophils # 0.1 K/mm3 (0-0.2); Basophils % 1.3 % (0.1-2.0); Eosinophils # 0.2 K/mm3 (0.0-0.4); Eosinophils % 3.3 % (0.1-12.0); Hematocrit 41.4 % (42.0-52.0); Hemoglobin 13.4 g/dL (14.1-18.0); Lymphocytes # 1.7 K/mm3 (0.7-4.5); Lymphocytes % 24.2 % (10-50); Mean Corpuscular HGB Conc 32.4 g/dL (31.8-35.4); Mean Corpuscular Hemoglobin 29.1 pg (27.0-31.2); Mean Corpuscular Volume 89.9 fl (80-94); Monocytes # 0.8 K/mm3 (0.1-1.0); Monocytes % 11.7 % (1.7-9.3); Neutrophils # 4.1 K/mm3 (1.8-7.8); Neutrophils % 59.5 % (37.0-80.0); Platelet Count 404 K/mm3 (142-424); Red Blood Count 4.61 M/mm3 (4.60-6.20); Red Cell Distribution Width 14.1 % (11.5-17.5); White Blood Count 6.9 K/mm3 (4.8-10.8)
[2022-01-15 12:30] LABS: Anion Gap 12.3 mEq/L (5-15); Blood Urea Nitrogen 14 mg/dl (9-20); Calcium 9.4 mg/dl (8.4-10.2); Carbon Dioxide 25 mmol/L (22.0-30.0); Chloride 106 mmol/L (98-107); Estimated Glomerular Filt Rate 81 ml/min (>60); GFR (African American) 98 ML/MIN (>60); Glucose 97 mg/dl (74-100); Potassium 4.3 mmoL/L (3.5-5.1); Sodium 139 mmol/L (136-145)
[2022-01-15 13:27] LABS: Eosinophils % 2 % (0-3); Lymphocytes % 22 % (10-50); Monocytes % 9 % (2-9); Neutrophils % 66 % (42-76); Platelet Estimate Normal; RBC Morphology Normal; Total Cells Counted 100
[2022-01-15 14:29] LABS: MANUAL DIFFERENTIAL MANUAL DIFFERENTIAL (MANUAL DIFF)
== END ==
PROVIDERS: Visit Provider Urology
DX: N40.1 Benign prostatic hyperplasia with lower urinary tract symptoms (principal); N13.8 Other obstructive and reflux uropathy; Z01.812 Encounter for preprocedural laboratory examination; Z11.52 Encounter for screening for COVID-19
CPT/HCPCS: 36415; 80048; 85007; 85014; 85018; 85048; 85049; C9803; U0003; U0005

== ENCOUNTER 2022-01-18 11:31 | Observation (INO) | payer MEDICARE, SELFPAY ==
[2022-01-15 15:40] VITALS: BMI 21.7
[2022-01-18] VITALS (19 sets, daily range): BP systolic 101–166; BP diastolic 47–92; PULSE 53–72; RESP 12–20; TEMP 35.9–43; O2SAT 91–98; BMI 36.3
[2022-01-18 10:08] LABS: Coronavirus 19, PCR Not Detected (NotDetected); Influenza A, PCR Not Detected (NotDetected); Influenza B, PCR Not Detected (NotDetected)
--- NOTE | 2022-01-18 10:43 | P.PN_ITS ---
[facility] Anesthesia Checklist - Patient Identification Patient Identification: Arm Band - Structural Data Admitted From: Home Planned Operative Procedure/s: TURP Consent for Planned Operative Procedure(s) Verified: Yes Verified Documents: Surgical Consent, History and Physical - NPO Status Verified Time NPO: 00:00 - Additional verifications Anesthesia Reactions: No Hx Blood Transfusions: No Blood Transfusion Reaction: No - Airway Assessment C-Spine Mobility Assessed: Yes (mp2) TMJ Mobility Assessed: Yes Dentition: Poor Dentition - Neurological Assessment Level of Consciousness: Awake, Alert - Anesthesia Plan Anesthesia Risk discussed: Yes Anesthesia Plan: Verified ASA Class: III Anesthesia Type: General [facility] History I have reviewed the patient's past medical history: Yes Medical History: Reports:: BPH, Coronary Artery Disease, Hyperlipidemia, Hypertension Denies:: Cancer, Diabetes Mellitus Type 1, Diabetes Mellitus Type 2, Internal Pacemaker, Lung Disease, MRSA, Seizures *Have you ever received a pneumonia vaccine?: Yes *Have you received a flu vaccine this season?: Yes Other Medical History: Reports: Arthritis. Denies: Blood Transfusion Reaction Anesthesia experience/problems:: nac Laterality Cases: Left: Arthroscopy Hip Other Surgeries: Yes: CABG, Colonoscopy, Other (back). No: Pacemaker Amputation: No - *Social History Last grade of school completed: High school graduate Smoking Status: Former smoker Alcohol Intake: never Substance Use Type: denies use *Occupational Status:: retired Housing: house Household Members: spouse *Travel in the last 8 weeks: None Family Hx:: No significant family history
--- NOTE | 2022-01-18 11:50 | SUR.OPER ---
1105- 16f munoz catheter removed by tim monet prior to procedure. 10ml of fluid removed from the catheter, catheter intact.
--- NOTE | 2022-01-18 11:52 | HMH.PHAVTE ---
[facility] Pharmacy VTE Monitoring - Patient Demographics Admission date: 01/18/22 Report Date: 01/18/22 Time: 11:52 Allergies/Adverse Reactions: Patient Allergies codeine [CODEINE] Allergy (Unknown, Verified 12/22/21 10:17) I-RASH Height: 1.83 m Weight: 72.575 kg - Prophylaxis VTE Prophylaxis Ordered?: Yes Types of VTE Prophylaxis: TEDS Knee High Location of Applied Device: Bilateral Lower Extremeties
--- NOTE | 2022-01-18 12:02 | HMH.PHAINT ---
Home medication list has been verified using the patient's PBM claim history, information provided by the patient, and med-rec from recent visit from one of our providers.
--- NOTE | 2022-01-18 12:50 | HMH.ANESI ---
[facility] Anesthesia Record Part I Intake, IV Amount: 1,500 Estimated blood loss (mL): 50 Urine output (mL): 0 Blood Pressure: 148/79 SaO2: 94 Pulse Rate: 60 Respiratory Rate: 12 Temperature: 97.4 F Patient is:: Awake, Stable Stable to PACU at:: 12:45
--- NOTE | 2022-01-18 16:33 | P.OP_ITS ---
Date of procedure: 01/18/22 Pre-op Diagnosis:: BPH with obstruction Post-op Diagnosis:: BPH with obstruction Procedure performed:: Transurethral resection of prostate Surgeon:: Donnie Franco MD PHYSICIST [employer]:: Janes Umaña Anesthesia: LMA Estimated blood loss (mL): 10 Clinical Note:: 81-year-old white male with history of urinary retention after hip surgery. Is admitted to the hospital in November and his creatinine was 23 and he had a large postvoid residual, distended bladder and bilateral hydroureteronephrosis. Cystoscopy was performed showing trilobar hyperplasia and TURP was recommended for which patient returns today. He has had a Sheth catheter in place for the last few weeks. Operative findings:: Trilobar hyperplasia with chronic changes of bladder outlet obstruction. Operative note:: Patient taken to the operating room after informed consent was obtained. He was placed on the operating room table in the supine position and general anesthesia administered. Preoperative antibiotics and sequential compression devices placed. He was then placed into the dorsal lithotomy position and prepped draped in the standard surgical fashion. The 20 Shorty passed into the urethra and into the prostatic urethra which showed trilobar hyperplasia. The bladder was entered and examined in a systematic fashion. There was moderate trabeculation and cellule formation. There were some small round bladder stones noted in the bladder. The ureteral orifices were partially obscured by the median lobe. The cystoscope then removed and our 28 Korean resectoscope sheath with obturator passed into the urethra and into the bladder without difficulty. The obturator removed and our resectoscope placed through the sheath and resection began at the bladder neck resecting it in a circumferential fashion. We then resected the floor of the prostatic urethra back to the verumontanum. We then turned our attention to the right side of the prostate resecting it in a clockwise fashion back to the verumontanum. There was some anterior tissue that was resected as well. The left side of the prostate was resected in a counterclockwise fashion back to the verumontanum. The apical tissue was resected as stage III. All prostatic chips were evacuated and hemostasis achieved. A 22 Korean three-way catheter then passed with help of a catheter guide. 30 cc placed into the balloon and continuous bladder irrigation instituted. Urine was clear. Patient transported to the recovery room in stable condition. Condition: stable Disposition: PACU Specimens:: Prostate curettings Complications:: None
--- NOTE | 2022-01-18 18:43 | PC.NURSE ---
Pt unable to confirm home meds.
[2022-01-19] VITALS: BP 126/67; PULSE 59; RESP 18; TEMP 36.9; O2SAT 95
[2022-01-19 04:00] VITALS: BP 120/64; PULSE 48; RESP 16; TEMP 36.9; O2SAT 92
--- NOTE | 2022-01-19 04:32 | PC.NURSE ---
Pt has slept most of the shift. Pts CBI running very slow with drips only. Pt reports no pain or issue with munoz. No blood clots or pink tinged urine. Pts only c/o was a headache. Treated and voiced that he felt better. Pt reported that he felt that he may have a BM later but none reported at this time. Pt has call rodriguez within reach and uses appropriately.
[2022-01-19 06:25] LABS: Basophils % 0.3 % (0.1-2.0); Eosinophils % 0.1 % (0.1-12.0); Hematocrit 38.2 % (42.0-52.0); Hemoglobin 12.3 g/dL (14.1-18.0); Lymphocytes # 1.4 K/mm3 (0.7-4.5); Lymphocytes % 9.7 % (10-50); Mean Corpuscular HGB Conc 32.2 g/dL (31.8-35.4); Mean Corpuscular Hemoglobin 28.5 pg (27.0-31.2); Mean Corpuscular Volume 88.4 fl (80-94); Mean Platelet Volume 8.2 fl (7.4-10.4); Monocytes # 0.6 K/mm3 (0.1-1.0); Monocytes % 4.2 % (1.7-9.3); Neutrophils % 85.8 % (37.0-80.0); Platelet Count 372 K/mm3 (142-424); Red Blood Count 4.33 M/mm3 (4.60-6.20)
[2022-01-19 06:28] LABS: Chloride 106 mmol/L (98-107); Potassium 3.8 mmoL/L (3.5-5.1); Sodium 133 mmol/L (136-145)
[2022-01-19 06:30] LABS: MANUAL DIFFERENTIAL MANUAL DIFFERENTIAL (MANUAL DIFF)
[2022-01-19 06:31] LABS: Anion Gap 9.8 mEq/L (5-15); Blood Urea Nitrogen 15 mg/dl (9-20); Calcium 7.6 mg/dl (8.4-10.2); Carbon Dioxide 21 mmol/L (22.0-30.0); Creatinine Clearance Estimated 96 mL/min (50-200); Estimated Glomerular Filt Rate 92 ml/min (>60); GFR (African American) 112 ML/MIN (>60); Glucose 125 mg/dl (74-100)
--- NOTE | 2022-01-19 07:15 | P.PN_ITS ---
[facility] Anesthesia Record Part II Discharge Time: 13:15 Destination: Surgical Day Care (OP Surgery) PACU nurse assessment reviewed?: Yes Patient Condition:: Good Anesthesia Complications:: None Swallowing reflex intact?: Yes Cyanosis?: No Blood Pressure: 145/68 Pulse Rate: 64 Temperature: 97.4 F Mental Status: Alert & Oriented Pain level:: 0 Nausea and/or vomitting:: None Intake, IV Amount: 0
[2022-01-19 07:16] VITALS: BP 145/68; PULSE 64; TEMP 36.3
[2022-01-19 07:31] VITALS: BP 115/67; PULSE 49; RESP 17; TEMP 36.6; O2SAT 96
[2022-01-19 07:43] LABS: Lymphocytes % 11 % (10-50); Monocytes % 6 % (2-9); Neutrophils % 83 % (42-76); Platelet Estimate Normal; RBC Morphology Normal; Total Cells Counted 100
[2022-01-19 08:00] VITALS: O2SAT 96
--- NOTE | 2022-01-19 13:01 | HMH.HP ---
*Admission Date: 01/18/22 *Chief complaint: Urinary retention *History of present illness: Patient is an 81-year-old white male with urinary retention. He has failed a voiding trial and cystoscopy has revealed trilobar hyperplasia with chronic bladder outlet obstructive changes in the bladder. He presents for transurethral resection of prostate. [facility] History Medical History: Reports:: BPH, Coronary Artery Disease, Hyperlipidemia, Hypertension Denies:: Cancer, Diabetes Mellitus Type 1, Diabetes Mellitus Type 2, Internal Pacemaker, Lung Disease, MRSA, Seizures *Have you ever received a pneumonia vaccine?: Yes *Have you received a flu vaccine this season?: Yes Other Medical History: Reports: Arthritis. Denies: Blood Transfusion Reaction Anesthesia experience/problems:: nac Laterality Cases: Left: Arthroscopy Hip Other Surgeries: Yes: CABG, Colonoscopy, Other (back). No: Pacemaker Amputation: No - *Social History Last grade of school completed: High school graduate Smoking Status: Former smoker Alcohol Intake: never Substance Use Type: denies use *Occupational Status:: retired Housing: house Household Members: spouse *Travel in the last 8 weeks: None Family Hx:: No significant family history Review of Systems - Review of Systems Review of systems:: pertinent systems reviewed and negative unless documented below Meds Home Medications Medication Instructions Recorded Confirmed Type losartan 100 mg tablet 100 mg PO DAILY 09/12/18 01/15/22 History simvastatin 40 mg tablet 40 mg PO HS 09/12/18 01/15/22 History hydroCHLOROthiazide 12.5 mg PO DAILY 11/12/21 01/15/22 History [Hydrochlorothiazide 12.5mg Tab] Hydrocod/Acet 5/325 mg [[place] 1 tab PO Q4HP PRN #60 tab 11/16/21 01/15/22 Rx 5/325mg tablet] Finasteride [Proscar] 5 mg PO DAILY 12/02/21 01/15/22 History Tamsulosin HCl [Flomax 0.4mg 0.4 mg PO HS 12/02/21 01/15/22 History capsule] Aspirin 325 mg PO DAILY 01/18/22 01/18/22 History Allergies Allergy/AdvReac Type Severity Reaction Status Date / Time codeine [CODEINE] Allergy Unknown I-RASH Verified 12/22/21 10:17 Exam Vital signs and Labs for Last 24 Hours: Temp Pulse Resp BP Pulse Ox 97.8 F 49 L 17 115/67 96 01/19/22 07:31 01/19/22 07:31 01/19/22 07:31 01/19/22 07:31 01/19/22 07:31 Laboratory Results - last 24 hr 01/19/22 05:42: WBC 14.0 H, RBC 4.33 L, Hgb 12.3 L, Hct 38.2 L, MCV 88.4, MCH 28.5, MCHC 32.2, RDW 14.0, Plt Count 372, MPV 8.2, Neut % (Auto) 85.8 H, Lymph % (Auto) 9.7 L, [place] % (Auto) 4.2, Eos % (Auto) 0.1, Baso % (Auto) 0.3, Neut # (Auto) 12.0 H, Lymph # (Auto) 1.4, [place] # (Auto) 0.6, Eos # (Auto) 0.0, Baso # (Auto) 0.0, Total Counted 100, Neutrophils % (Manual) 83 H, Lymphocytes % (Manual) 11, Monocytes % (Manual) 6, Platelet Estimate Normal, RBC Morphology Normal 01/19/22 05:42: Sodium 133 L, Potassium 3.8, Chloride 106, Carbon Dioxide 21 L, Anion Gap 9.8, BUN 15, Creatinine 0.80, Estimated Creat Clear 96, Estimated GFR 92, Est GFR ( Amer) 112, Glucose 125 H, Calcium 7.6 L I & O for Last 24 hours: Intake & Output 01/16/22 01/17/22 01/18/22 01/19/22 23:59 23:59 23:59 23:59 Intake Total 2740 / 2740 1080 / 1080 Output Total 1620 / 1620 Balance 2740 / 1120 -540 / -540 Weight 121.648 kg - Constitutional no acute distress - *Routine HEENT Exam Head: Present: normocephalic Eye: Present: EOMI, PERRL ENT: Present: mucous membranes moist - *Routine Neck Exam Present: supple. Absent: lymphadenopathy - *Routine Respiratory Exam Present: CTA bilaterally - *Routine Cardiovascular Exam Present: RRR - *Routine Abdominal Exam Present: soft, normoactive bowel sounds. Absent: tenderness - *Routine Rectal Exam Rectal:: deferred - *Routine Genitalia Exam Genitalia:: deferred - *Routine Extremities Exam Absent: cyanosis, clubbing, edema - *Routine Skin Exam Present: warm. Absent: rash - *Routine Neurological Exam Present:
--- NOTE | 2022-01-19 13:04 | HMH.ACPN ---
Internal Medicine - PN: Subj *Date: 01/19/22 *Time: 13:04 Interval history: Patient is status post TURP yesterday. He denies any problems overnight. He is afebrile vital signs are stable. Urine is clear in his Sheth bag and the CBI has been turned off. Exam Vital signs and Labs for Last 24 Hours: Temp Pulse Resp BP Pulse Ox 97.8 F 49 L 17 115/67 96 01/19/22 07:31 01/19/22 07:31 01/19/22 07:31 01/19/22 07:31 01/19/22 07:31 Laboratory Results - last 24 hr 01/19/22 05:42: WBC 14.0 H, RBC 4.33 L, Hgb 12.3 L, Hct 38.2 L, MCV 88.4, MCH 28.5, MCHC 32.2, RDW 14.0, Plt Count 372, MPV 8.2, Neut % (Auto) 85.8 H, Lymph % (Auto) 9.7 L, [place] % (Auto) 4.2, Eos % (Auto) 0.1, Baso % (Auto) 0.3, Neut # (Auto) 12.0 H, Lymph # (Auto) 1.4, [place] # (Auto) 0.6, Eos # (Auto) 0.0, Baso # (Auto) 0.0, Total Counted 100, Neutrophils % (Manual) 83 H, Lymphocytes % (Manual) 11, Monocytes % (Manual) 6, Platelet Estimate Normal, RBC Morphology Normal 01/19/22 05:42: Sodium 133 L, Potassium 3.8, Chloride 106, Carbon Dioxide 21 L, Anion Gap 9.8, BUN 15, Creatinine 0.80, Estimated Creat Clear 96, Estimated GFR 92, Est GFR ( Amer) 112, Glucose 125 H, Calcium 7.6 L I & O for Last 24 hours: Intake & Output 01/16/22 01/17/22 01/18/22 01/19/22 23:59 23:59 23:59 23:59 Intake Total 2740 / 2740 1080 / 1080 Output Total 1620 / 1620 Balance 2740 / 1120 -540 / -540 Weight 121.648 kg - Constitutional no acute distress - *Routine HEENT Exam Head: Present: normocephalic Eye: Present: EOMI, PERRL ENT: Present: mucous membranes moist - *Routine Neck Exam Present: supple. Absent: lymphadenopathy - *Routine Respiratory Exam Absent: accessory muscle use - *Routine Cardiovascular Exam Absent: JVD - *Routine Abdominal Exam Present: soft, normoactive bowel sounds. Absent: tenderness - *Routine Extremities Exam Absent: cyanosis, clubbing, edema - *Routine Skin Exam Present: warm. Absent: rash - *Routine Neurological Exam Present: alert, oriented X3 Assessment and Plan (1) BPH loc w urin obs/LUTS Status: Acute Category: Medical Code(s): N40.1 - Benign prostatic hyperplasia with lower urinary tract symptoms Postop day 1 status post TURP. Patient doing well and we are going to disconnect his IV fluids and continuous bladder irrigation. He will be allowed to walk around and if his urine remains clear at lunchtime we will plan on discharging home.
--- NOTE | 2022-01-19 13:19 | DIET.NUTRFU ---
RD saw patient after lunch today, ready for discharge. Last admit in Nov had reported significant wt loss. He reports that is has been able to maintain weight since then with improved meal intake. No dietary concerns at this time.
--- NOTE | 2022-01-19 13:40 | HMH.PHAINT ---
I spoke with the patient and his today about the patient's medication list. Went over the new medication being sent in for the patient, medications the patient was to continue on at home, and the medications he should stop taking. When we spoke, there were no questions or concerns. The patient was provided a copy of the medication list.
--- NOTE | 2022-01-20 14:12 | CARE MANAGER ---
Contacted patient related to discharge follow up from hospital. Patient states that he is taking antibiotics and doing well. He has follow up appt. with Salvador on Tuesday. Denies any questions at this time.
--- NOTE | 2022-01-25 16:00 | HMH.DCSUM ---
General - General Admission date:: 01/18/22 Discharge date: 01/19/22 HPI HPI: Patient is an 81-year-old white male with urinary retention. He has failed a voiding trial and cystoscopy has revealed trilobar hyperplasia with chronic bladder outlet obstructive changes in the bladder. He presents for transurethral resection of prostate. Hospital Course Hospital Course: Patient was taken to the operating room on January 18 and transurethral resection of prostate was performed without complication. He was transported to the floor postoperatively where he did well. On the following day his urine was slightly blood-tinged. He had no complaints and was tolerating regular diet. His CBI was discontinued and he was allowed to walk around in the halls and at noon time I checked back on him and his urine had remained largely clear. He was discharged home with his Munoz catheter. Objective Vital signs: Temp Pulse Resp BP Pulse Ox 97.8 F 49 L 17 115/67 96 01/19/22 07:31 01/19/22 07:31 01/19/22 07:31 01/19/22 07:31 01/19/22 08:00 no acute distress - *Routine HEENT Exam Head: Present: normocephalic Eye: Present: EOMI, PERRL ENT: Present: mucous membranes moist - *Routine Neck Exam Present: supple - *Routine Respiratory Exam Absent: accessory muscle use - *Routine Cardiovascular Exam Absent: JVD - *Routine Abdominal Exam Present: soft. Absent: tenderness - *Routine Extremities Exam Absent: cyanosis, clubbing, edema - *Routine Skin Exam Present: warm. Absent: rash - Detailed Eye Exam Eyelids: Bilateral normal inspection DS: Diagnosis - Discharge Diagnosis (1) BPH loc w urin obs/LUTS Status: Acute Discharge Plan - Patient Discharge Instructions ACTIVITY: Ambulate as tolerated DIET: regular diet Additional Instructions: Home with munoz. Teach how to drain leg bag and change leg bag to nighttime bag. Push fluids at home. Patient Instructions: DI for Benign Prostatic Hyperplasia - Follow up Plan Follow up with: Donnie Franco MD [Staff Physician] - 01/22/22 11:00 am Disposition: Home, Self-Care Condition at discharge:: Stable Home Medications: Home Medications Medication Instructions Recorded Confirmed Type losartan 100 mg tablet 100 mg PO DAILY 09/12/18 01/22/22 History simvastatin 40 mg tablet 40 mg PO HS 09/12/18 01/22/22 History hydroCHLOROthiazide 12.5 mg PO DAILY 11/12/21 01/22/22 History [Hydrochlorothiazide 12.5mg Tab] Hydrocod/Acet 5/325 mg [[place] 1 tab PO Q4HP PRN #60 tab 11/16/21 01/22/22 Rx 5/325mg tablet] Aspirin 325 mg PO DAILY 01/18/22 01/22/22 History Cefdinir [Omnicef 300mg Capsule] 300 mg PO BID 5 Days #10 cap 01/19/22 01/22/22 Rx Prescriptions/Medication Reconciliation: New Cefdinir [Omnicef 300mg Capsule] 300 mg PO BID 5 Days #10 cap Continued simvastatin 40 mg tablet 40 mg PO HS losartan 100 mg tablet 100 mg PO DAILY hydroCHLOROthiazide [Hydrochlorothiazide 12.5mg Tab] 12.5 mg PO DAILY Hydrocod/Acet 5/325 mg [[place] 5/325mg tablet] 1 tab PO Q4HP PRN #60 tab PRN Reason: Mild To Moderate Pain Aspirin 325 mg PO DAILY Discontinued Tamsulosin HCl [Flomax 0.4mg capsule] 0.4 mg PO HS Finasteride [Proscar] 5 mg PO DAILY - Problem Reconciliation Problems Reviewed?: Yes
== END 2022-01-19 14:20 | disposition home or self-care (01) ==
LOC: 2ND 11:31
PROVIDERS: Admitting Provider Urology; PCP Family Medicine; Visit Provider Urology
PROC: 0VT08ZZ Resection of Prostate, Via Natural or Artificial Opening Endoscopic (ICD-10-PCS; CPT 52601; principal; 2022-01-18 10:30)
DX: N40.1 Benign prostatic hyperplasia with lower urinary tract symptoms (principal); R33.8 Other retention of urine; I25.10 Atherosclerotic heart disease of native coronary artery without angina pectoris; I10 Essential (primary) hypertension; E78.5 Hyperlipidemia, unspecified; Z95.1 Presence of aortocoronary bypass graft; Z79.899 Other long term (current) drug therapy; N13.39 Other hydronephrosis; Z20.822 Contact with and (suspected) exposure to COVID-19
CPT/HCPCS: 52601; G0378; 36415; 80048; 85007; 85025; 96374; C9803; J2405; U0003; U0005

== ENCOUNTER → 2022-02-02 10:21 | Outpatient (CLI) | payer MEDICARE, SELFPAY ==
--- NOTE | 2022-02-02 10:25 | XR_ITS ---
FINAL REPORT CLINICAL HISTORY: s/p hip 11/12/2021 COMPARISON: December 22, 2021 FINDINGS: 2 views of the left hip with an AP pelvis were obtained. There are mild degenerative changes of the right hip. There is degenerative change in the lower lumbar spine. There is no acute fracture or dislocation. There has been left hip arthroplasty. There are soft tissue calcifications at the hip. IMPRESSION: Stable postoperative change. Reviewed, Interpreted and Dictated by Alvino Higuera III, MD Transcribed by Hang Landry Authenticated by Alvino Higuera III, MD on 02/02/2022 11:24:29 AM [facility]
== END ==
PROVIDERS: PCP Family Medicine; Visit Provider Orthopaedic Surgery
DX: S72.002A Fracture of unspecified part of neck of left femur, initial encounter for closed fracture (principal)
CPT/HCPCS: 73502

== ENCOUNTER → 2022-02-22 16:55 | Outpatient (CLI) | payer MEDICARE, SELFPAY | PROVIDERS: Visit Provider Urology | DX: R33.9 Retention of urine, unspecified (principal); B96.20 Unspecified Escherichia coli [E. coli] as the cause of diseases classified elsewhere | CPT/HCPCS: 87086; 87088; 87186 ==

== ENCOUNTER → 2022-05-04 09:03 | Outpatient (CLI) | payer MEDICARE, SELFPAY ==
--- NOTE | 2022-05-04 09:12 | XR_ITS ---
FINAL REPORT CLINICAL HISTORY: lt hip pain COMPARISON: February 02, 2022 FINDINGS: LEFT HIP Two views of the left hip including an AP pelvis were obtained. There are postoperative changes from left hip arthroplasty. No acute fracture is seen. There are mild degenerative changes in the right hip. The visualized bony structures are well aligned. Soft tissue calcifications are visually stable. IMPRESSION: Postoperative change with no acute bony abnormality. Mild degenerative change of the right hip. Reviewed, Interpreted and Dictated by Alvino Higuera III, MD Transcribed by Christie Baron Authenticated and . [facility]
== END ==
PROVIDERS: PCP Family Medicine; Visit Provider Orthopaedic Surgery
DX: S72.002A Fracture of unspecified part of neck of left femur, initial encounter for closed fracture (principal)
CPT/HCPCS: 73502

== ENCOUNTER 2025-09-27 12:40 | Observation (INO) | payer MEDICARE, SELFPAY ==
[2025-09-27] VITALS (13 sets, daily range): BP systolic 105–162; BP diastolic 52–101; PULSE 61–76; RESP 12–24; TEMP 36.3–37.1; O2SAT 92–99; BMI 21.7; BMI 19.8
--- NOTE | 2025-09-27 12:44 | ED_ITS ---
<Statement entered by Bj Chaidez MD - 09/28/25 15:01> Bj Chaidez MD: I was consulted by the REBECCA, and we discussed the complexity of the problems being addressed. I approve the treatment and management plan for this patient's care in the emergency department, thus performing a substantive portion of the medical decision making. Discharge Plan Disposition Patient Disposition: Admitted Condition: Fair Prescriptions Prescriptions: No Action levofloxacin 500 mg tablet 500 mg PO DAILY 5 Days Qty: 5 0RF simvastatin 40 mg tablet 40 mg PO HS losartan 100 mg tablet 100 mg PO DAILY aspirin 325 MG tablet 325 mg PO DAILY cefdinir 300 MG capsule 300 mg PO BID 5 Days Qty: 10 0RF hydrochlorothiazide 12.5 MG tablet 12.5 mg PO DAILY hydrocodone-acetaminophen 1 TAB tablet 1 tab PO Q4HP PRN (Reason: Mild To Moderate Pain) Qty: 60 0RF Referrals Follow up/Referrals: Sukumar Mckinley MD [Primary Care Provider, Medical] - See instructions Clinical Impressions Clinical Impression: Rhabdomyolysis, Urinary tract infection, Acute kidney injury Print Language Print Language: Qatari Discharge ED Provider: Bj Chaidez General Adult HPI General Chief complaint: Weakness Stated complaint: AO-Fall 09/26- weakness, bruising on arms/ head Time Seen by Provider: 09/27/25 12:44 History of Present Illness HPI narrative: 85-year-old male presents emergency department the son. Son states that they went to pick patient up for holiday dinner yesterday when he was found down on the floor. They are unsure how long he has been down as he was last seen the day before. They state when they got patient up he did not have any complaints and was acting normally however when they went to check on him today he states that he felt very weak and was not feeling like his normal self. Son reports patient does have a history of dementia and states that he appears to be at his normal baseline. Upon arrival patient has no pain complaints. Related Data Home Medications ?Medication ?Instructions ?Recorded ?Confirmed losartan 100 mg tablet 100 mg PO DAILY Hypertension 09/12/18 02/22/22 simvastatin 40 mg tablet 40 mg PO HS Cholesterol 09/0202/22/22 hydrochlorothiazide 12.5 mg tablet 12.5 mg PO DAILY Fl uid 11/12/21 02/22/22 aspirin 325 mg tablet 325 mg PO DAILY [facility] 01/18/22 02/22/22 Previous Rx's ?Medication ?Instructions ?Recorded hydrocodone 5 mg-acetaminophen 325 1 tab PO Q4HP PRN M ild To Moderate 11/16/21 mg tablet Pain #60 tabs cefdinir 300 mg capsule 300 mg PO BID 5 days #10 cap s 01/19/22 levofloxacin 500 mg tablet 500 mg PO DAILY 5 days #5 t abs 02/22/22 Allergies Allergy/AdvReac Type Severity Reaction Status Date / Time codeine (CODEINE) Allergy Unknown I-RASH Verified 02/22/22 13:42 [facility] Disclaimer: The information contained in this section may have been updated after the patient was seen, as this information can be updated by other users. Social History Smoking Status: Never smoker alcohol intake: never substance use type: denies use current occupational status: retired Travel in the last 8 weeks?: None household members: spouse housing: house current occupational exposures/hazards: No caffeine: Yes Have you lived/traveled outside [place] in past 30 days?: No Contact w/someone who lives/traveled outside US past 30 days?: No Exposure to someone with infectious disease in past 14 days?: No Do you have a fever (greater than 100.4 F or 38 C)?: No Have you tested positive for COVID-19?: No Exposed to someone with COVID-19 in past 14 days?: No Do you have a sore throat?: No Do you have a cough?: No Do you have any weakness?: No Do you have any diarrhea?: No Are you experiencing any unusual bleeding?: No Do you have any muscle aches/pain?: No Do you have any abdominal pain?: No Are you experiencing loss of taste or smell?: No Other Medical History Have you received the Flu Vaccine for this season: No Have you received the Pneumonia Vaccine: No ROS Obtained: Yes other Constitutional Constitutional: Reports weakness Integumentary/Breasts Skin/Breast: Reports other (Bruising) Neurologic Neurologic: Reports confusion and Reports weakness Physical Exam Narrative Physical exam: General: Awake, aware, in no acute distress HEENT: Normocephalic, no evidence of trauma CV: RRR, no murmurs, rubs, or gallops Pulm: CTA bilaterally with no rhonchi, rales, wheezes ABD: Nontender, no swelling, guarding, or rebound tenderness Psych, appropriate mood and affect Skin: Patient with bruising sporadically over head, chest, abdomen, bilateral upper extremities, bilateral lower extremities. Neuro: Pupils are equal round reactive to light. Patient moving all extremities without difficulty. Patient with 5 out of 5 strength in all extremities. Patient oriented to person but not place or time. General General appearance: alert Respiratory Respiratory exam: Present normal lung sounds bilaterally Cardiovascular Cardiovascular exam: Present regular rate Neurological Exam Neurological exam: Present other Medical Decision Making Medical Records Screening: Per USPSTF and CDC recommendations, given the prevalence of disease in our region, it is our hospital?s policy to screen for HIV and viral Hepatitis for all patients aged 18 and over and those with ongoing risk factors. [place] Inquiry Pt receiving controlled substance: No Vital Signs: 09/27/25 12:48 09/27/25 12:51 09/27/25 12:55 Temperature 97.4 F L Temperature Source Axillary Pulse Rate 68 69 Pulse Rate [Right] 69 Respiratory Rate 20 18 Blood Pressure 116/70 109/78 L Blood Pressure [Right Arm] 116/70 Blood Pressure Mean Blood Pressure Mean [Right Arm] 85 Blood Pressure Source Automatic Cuff Blood Pressure Source [Right Arm] Automatic Cuff Blood Pressure Position Sitting Blood Pressure Position [Right Arm] Sitting 02 Sat by Pulse Oximetry 95 98 96 Oxygen Delivery Method Room Air Room Air 09/27/25 13:00 09/27/25 13:43 09/27/25 15:01 Temperature Temperature Source Pulse Rate 68 68 68 Pulse Rate [Right] Respiratory Rate 12 15 Blood Pressure 109/78 L 126/67 139/79 Blood Pressure [Right Arm] Blood Pressure Mean 96 Blood Pressure Mean [Right Arm] Blood Pressure Source Blood Pressure Source [Right Arm] Blood Pressure Position Blood Pressure Position [Right Arm] 02 Sat by Pulse Oximetry 98 97 99 Oxygen Delivery Method 09/27/25 16:01 09/27/25 17:00 Temperature Temperature Source Pulse Rate 72 61 Pulse Rate [Right] Respiratory Rate 20 21 Blood Pressure 162/59 H 153/74 H Blood Pressure [Right Arm] Blood Pressure Mean 93 Blood Pressure Mean [Right Arm] Blood Pressure Source Blood Pressure Source [Right Arm] Blood Pressure Position Blood Pressure Position [Right Arm] 02 Sat by Pulse Oximetry 92 L 99 Oxygen Delivery Method Room Air Lab Data Lab Results 09/27/25 13:34: WBC 11.0 H, RBC 4.45 L, Hgb 12.9 L, Hct 38.4 L, MCV 86.3, MCH 29.0, MCHC 33.6, RDW 13.9, Plt Count 318, MPV 9.9, Neut % (Auto) 78.4, Lymph % (Auto) 13.0, [place] % (Auto) 7.4, Eos % (Auto) 0.5, Baso % (Auto) 0.3, Neut # (Auto) 8.6 H, Lymph # (Auto) 1.4, [place] # (Auto) 0.8, Eos # (Auto) 0.1, Baso # (Auto) 0.0, Sodium 140, Potassium 3.7, Chloride 107, Carbon Dioxide 26, Anion Gap 10.7, BUN 28 H, Creatinine 2.30 H, Estimated Creat Clear 23, Estimated GFR 27 L, Est GFR ( Amer) 33 L, Glucose 92, Calcium 9.6, Magnesium 2.4 H, Total Bilirubin 0.7, AST 89 H, ALT 42, Alkaline Phosphatase 99, Total Creatine Kinase 590 H*, Troponin I 0.11 H, NT-Pro-B Natriuret Pep 3650 H, Total Protein 6.7 D, Albumin 3.5, Globulin 3.2, Albumin/Globulin Ratio 1.1 09/27/25 15:00: Urine Color Yellow, Urine Appearance Clear, Urine pH 5.0, Ur Specific [place] 1.025, Urine Protein 3+ A, Urine Glucose (UA) Trace, Urine Ketones 1+, Urine Blood 3+ A, Urine Nitrate Positive A, Urine Bilirubin Negative, Urine Urobilinogen 1.0, Ur Leukocyte Esterase 1+ A, Urine RBC Tntc, Urine WBC 5-10, Ur Squamous Epith Cells 5-10, Urine Bacteria 1+, Hyaline Casts Occasional, Urine Mucus 2+ 09/27/25 17:00: Troponin I 0.09 H 09/27/25 13:34 09/27/25 13:34 Orders (Tests/Meds): ED MEDICATIONS Generic Name Dose Route Start Last Admin Trade Name Freq PRN Reason Stop Dose Admin Ceftriaxone Sodium 1 gm/ 50 mls @ 100 mls/hr 09/27/25 18:00 Sodium Chloride IV 09/27/25 18:29 ONCE ONE Discontinued Medications Generic Name Dose Route Start Last Admin Trade Name Freq PRN Reason Stop Dose Admin Sodium Chloride 1,000 mls @ 500 mls/hr 09/27/25 15:02 09/27/25 15:16 Sod Chlor 0.9% 1000ml Bag IV 09/27/25 17:01 500 mls/hr .Q2H ONE Administration Iopamidol 80 ml 09/27/25 15:52 09/27/25 15:53 Iopamidol-370 (76%);100ml Bottle IV 09/27/25 15:53 80 ml ONCE ONE Administration Sodium Chloride 10 ml 09/27/25 15:52 09/27/25 15:53 Sodium Chloride 0.9% 10ml Syr (Rad Only) IV 09/27/25 15:53 10 ml ONCE ONE Administration Sodium Chloride 50 ml 09/27/25 15:52 09/27/25 15:53 0.9 % Sodium Chloride 50 Ml Vial IV 09/27/25 15:53 50 ml ONCE ONE Administration ORDERS Category Date Time Status CT angio abd/pel - TRAUMA Stat Cat Scan 09/27/25 15:[address] head/brain wo con Stat Cat Scan 09/27/25 13:03 Completed CTA Chest [CT angio chest - dissection] Stat Cat Scan 09/27/25 15:01 Completed XR chest portable Stat Exams 09/27/25 13:03 Completed BNP [NT Pro Brain Natriuretic Pep.] Stat Lab 09/27/25 13:34 Completed Complete Blood Count Auto Diff Stat Lab 09/27/25 13:34 Completed Comprehensive Metabolic Panel Stat Lab 09/27/25 13:34 Completed Creatine Kinase Stat Lab 09/27/25 13:34 Completed Magnesium Stat Lab 09/27/25 13:34 Completed Troponin I Q3H Lab 09/27/25 17:00 Completed Troponin I Q3H Lab 09/27/25 19:15 Ordered Troponin I Stat Lab 09/27/25 13:34 Completed Urinalysis and Microscopic Stat Lab 09/27/25 15:00 Completed Urine Culture Stat Micro 09/27/25 15:00 Received Medical Decision Narrative: Initial impression of presenting illness: 85-year-old male with a history of dementia presents the emergency department the son. Son states that they went to pick patient up for Holiday meal yesterday when he was found down on the floor. They state that they had seen the patient the day before but are unsure how long he was in the floor. They state when they got patient up he had no complaints and states that he was feeling fine however when they went to check on him today he was complaining of weakness and not feeling well. Patients son states that he appears to be at his baseline mental status. Patient has no pain complaints upon arrival to the emergency department Differential diagnosis includes but is not limited to: Intracranial abnormality, fracture, contusion, hematoma, rhabdo, kidney disease, heart disease, orthostatic hypotension, ACS Patient arrives hemodynamically stable, afebrile, without respiratory distress with vital signs interpreted by myself. Initial physical exam reveals scattered bruising across patient's head, bilateral upper and lower extremities as well as chest and abdomen. Patient is alert to person but not place or time. Sensations intact with 5 out of 5 strength in all extremities. Initial diagnostic plan: CT of head without contrast, heart failure workup, urinalysis, CK Nursing staff attempting to In-N-Out cath patient and I was called to room to evaluate. Patient's penis appears excoriated. Will clean patient's genital area and apply a protective barrier cream. No open lesions present at this time. Patient denies tenderness to the area. Nursing staff was only able to get a very small amount of blood-tinged urine out. Will give patient a 500 normal saline bolus for hydration. Patient also has scattered bruising across his chest and abdomen will add on CTA of chest, abdomen, pelvis to evaluate for injury related to the fall. Results from initial plan were reviewed and interpreted by myself, pertinent positives include: Patient initial troponin was 0.11 with a 3-hour repeat at 0.09. BUN was 28, creatinine 2.3, GFR 27, BNP 3650, CK5 190. Urinalysis was positive for nitrates as well as too numerous to count red blood cells, 5-10 white blood cells per high-power field as well as 1+ bacteria. CT of head was unremarkable for acute findings as well as chest x-ray. CTA of chest abdomen and pelvis shows chronic appearing L2 and L3 lumbar compression fractures. There was also mention of a borderline aneurysmal dilation of the ascending aorta at the aortic sinus. In addition there was a infrarenal abdominal aortic aneurysm with no evidence of rupture. Interventions in the ED: Patient was given normal saline bolus for hydration. He was also given a dose of Rocephin for treatment of his urinary tract infection Patient was made aware of the results and the findings, upon reevaluation patient has remained stable throughout stay, symptoms remained stable. Upon reevaluation patient remains pleasantly confused. He continues to deny any current pain complaints. Consultation/discussion with other physicians: I have reached out to the hospitalist regarding patient's presenting complaint and workup findings and attempt to admit him to this facility. I am awaiting for return phone call at this time. Hospitalist called back and I reviewed patient's presenting complaint and workup findings. He was agreeable to admit patient at this time for treatment of rhabdo, urinary tract infection, acute kidney injury. I reviewed these findings with patient and family as well and they were agreeable for admission Critical Care Critical Care Time Critical Care Time: No
--- NOTE | 2025-09-27 13:03 | XR_ITS ---
FINAL REPORT CLINICAL HISTORY: fall, pain FINDINGS: CHEST, 1 view COMPARISON: 11/11/2021 FINDINGS: No acute pulmonary opacity is present. Chronic scarring is seen of the right upper lobe. There is no evidence of effusion or pneumothorax. 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 Otherwise, mediastinum is unremarkable. Heart size is normal. No obvious rib fracture is present. IMPRESSION: No acute findings Authenticated and ERN
--- NOTE | 2025-09-27 13:03 | CT_ITS ---
FINAL REPORT TECHNIQUE: Noncontrast exam This study was performed with techniques to keep radiation doses as low as reasonably achievable, (ALARA). Individualized dose reduction techniques using automated exposure control or adjustment of mA and/or kV according to the patient''s size were employed. CLINICAL HISTORY: fall FINDINGS: Moderate atrophy and chronic ischemic white matter changes are noted. No cortical edema is present. There is no mass or hemorrhage. Ventricles are normal. Bone windows show no skull fracture or obvious obstructive lesion. IMPRESSION: 1. No acute intracranial abnormality or obvious mass. 2. Atrophy and chronic ischemic white matter changes as above. Authenticated and ERN
--- NOTE | 2025-09-27 13:40 | ECG_ITS ---
APPROVED REPORT Exam: Resting ECG HR:83 bpm ECG Measurements Heart Rate 83 AXES MT 183 P 75 QRSd 121 QRS 86 QT 390 T 59 QTc 430 Conclusion SINUS RHYTHM WITH FREQUENT SUPRAVENTRICULAR PREMATURE COMPLEXES RIGHT BUNDLE BRANCH BLOCK [120+ ms QRS DURATION, UPRIGHT V1, 40+ ms S IN I/aVL/V4/V5/V6] INFERIOR MYOCARDIAL INFARCTION , PROBABLY OLD [40+ ms Q WAVE AND/OR ST/T ABNORMALITY IN II/aVF] ABNORMAL ECG Electronically signed by : SERGEY PACHECO, 09/28/2025 09:32:06
[2025-09-27 13:41] LABS: Hematocrit 38.4 % (42.0-52.0); Hemoglobin 12.9 g/dL (14.1-18.0); Immature Granulocytes % 0.4 %; Mean Corpuscular HGB Conc 33.6 g/dL (31.8-35.4); Mean Corpuscular Hemoglobin 29.0 pg (27.0-31.2); Mean Corpuscular Volume 86.3 fl (80-94); Nucleated Red Blood Cells % 0 %; Platelet Count 318 K/mm3 (142-424); Red Blood Count 4.45 M/mm3 (4.60-6.20); Red Cell Distribution Width-SD 43.1 fL; White Blood Count 11.0 K/mm3 (4.8-10.8)
[2025-09-27 13:51] LABS: Albumin Level 3.5 g/dl (3.5-5.0); Chloride 107 mmol/L (98-107); Potassium 3.7 mmoL/L (3.5-5.1); Sodium 140 mmol/L (136-145)
[2025-09-27 13:54] LABS: Alanine Aminotransferase 42 U/L (12-78); Albumin/Globulin Ratio 1.1 (1.1-1.8); Alkaline Phosphatase 99 U/L (38-126); Anion Gap 10.7 mEq/L (5-15); Aspartate Amino Transferase 89 U/L (17-59); Bilirubin,Total 0.7 mg/dl (0.2-1.3); Blood Urea Nitrogen 28 mg/dl (9-20); Carbon Dioxide 26 mmol/L (22.0-30.0); Creatinine Clearance Estimated 23 mL/min (50-200); Creatinine,Serum 2.30 mg/dl (0.66-1.25); Estimated Glomerular Filt Rate 27 ml/min (>60); GFR (African American) 33 ML/MIN (>60); Globulin 3.2 g/dL (1.3-3.2); Magnesium 2.4 mg/dl (1.6-2.3); Total Protein,Serum 6.7 g/dl (6.3-8.2)
[2025-09-27 13:55] LABS: Calcium 9.6 mg/dl (8.4-10.2); Glucose 92 mg/dl (74-100)
[2025-09-27 14:12] LABS: Troponin I 0.11 ng/ml (0.00-0.034)
[2025-09-27 14:22] LABS: Creatine Kinase 590 U/L (55-170)
[2025-09-27 14:31] LABS: NT Pro Brain Natriuretic Pep. 3650 pg/mL (0-450)
--- NOTE | 2025-09-27 15:00 | CT_ITS ---
FINAL REPORT TECHNIQUE: Thin section axial images were obtained through the abdomen and pelvis after contrast injection per CT angiogram protocol. Multiplanar reconstruction images were obtained from the axial data. This exam was performed with techniques to keep radiation dose as low as reasonably achievable. This includes automated exposure control, adjustment of the MA and KVP, and iterative reconstruction technique. CLINICAL HISTORY: fall COMPARISON: None FINDINGS: CTA: There is an infrarenal abdominal aortic aneurysm measuring 61 x 68 mm in size, that extends mildly into the right common iliac artery, which measures up to 22 mm in diameter. There is no evidence of rupture of this aneurysm. Moderate mural thrombus is present. There is mild stenosis of the celiac axis. The SMA and CHRISTIN are widely patent. The renal arteries are patent. The visualized portions of the internal and external iliac arteries are patent. No significant stenosis. NONVASCULAR: The gallbladder is present. The solid abdominal organs are without acute injury. There is no hemoperitoneum present. There is a large exophytic cyst in the lower pole of the left kidney measuring up to 9.5 cm in size. The GI tract is without acute abnormality. No lymphadenopathy or free fluid. There are mild chronic appearing compression fractures at the L2 and L3 levels. There are also subacute healing fractures of the right superior and inferior pubic rami. Small inguinal hernias are present containing fat. There are minimal hyperdense dependent foci in the bladder that likely represent small stones. IMPRESSION: 1. There is an infrarenal abdominal aortic aneurysm, 61 x 68 mm in size, as described above. There is no evidence of rupture of this aneurysm. No evidence of hemoperitoneum is present. 2. There are chronic appearing L2 and L3 lumbar compression fractures, as well as subacute healing fractures of the right superior and inferior pubic rami. Reviewed, Interpreted and Dictated by Rafael Shabazz MD Transcribed by Samara Peterson Authenticated and [facility]
--- NOTE | 2025-09-27 15:01 | CT_ITS ---
FINAL REPORT TECHNIQUE: Thin section axial CT with contrast with multiplanar reconstruction This study was performed with techniques to keep radiation doses as low as reasonably achievable, (ALARA). Individualized dose reduction techniques using automated exposure control or adjustment of mA and/or kV according to the patient's size were employed. CLINICAL HISTORY: fall COMPARISON: None FINDINGS: CTA CHEST: There is moderate degradation of overall image quality secondary to significant respiratory motion artifact. Mild dependent atelectasis is present. There are localized interstitial changes in the right upper lobe, favor chronic. There is a possible nodule in the right lower lobe best seen on image #32 of series 4, measuring up to 8 mm in size. A 3 mm lateral left lower lobe nodule is present, best seen on image #54. The aortic sinus measures 40 mm in diameter, which is borderline aneurysmal. The mid ascending thoracic aorta is within normal limits. 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 No rib fractures are identified. There is mild compression of the T5 vertebral body, and minimal compression of the inferior endplate of T7, of indeterminate age but favored chronic. MRI would be helpful in determining age as indicated. IMPRESSION: 1. No evidence of aortic dissection or rupture is identified. 2. 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 3. Thoracic compression fractures as described, of indeterminate age but favor chronic. MRI could confirm. 4. Possible right lung nodule as described above. If indicated, 4 to 6-month follow-up chest CT could be performed. Reviewed, Interpreted and Dictated by Rafael Shabazz MD Transcribed by Samara Peterson Authenticated and [facility]
[2025-09-27 15:04] LABS: Microscopic, Urine URINE MICROSCOPIC (MICROSCOPIC)
[2025-09-27 15:10] LABS: Bilirubin,Urine Negative (Negative); Color,Urine YELLOW (Yellow); Glucose,Urine (UA) TRACE (Negative); Ketones,Urine 1+ (Negative); Leukocyte Esterase,Urine 1+ (Negative); PH,Urine 5.0 (5.0-8.5); Protein,Urine 3+ (Negative); Specific Gravity, Urine 1.025 (1.005-1.030); Urobilinogen,Urine 1.0 EU/dl (0.2)
[2025-09-27] MEDS: 0.9 % SODIUM CHLORIDE 1000ML 1,000 ML 500 ML IV (15:16)
--- NOTE | 2025-09-27 15:23 | HMH.ITSTN ---
ED provider still wants ct scans with contrast even with low gfr
--- NOTE | 2025-09-27 15:43 | PC.NURSE ---
PT TRANSPORTED TO RADIOLOGY VIA STRETCHER
[2025-09-27 15:46] LABS: Bacteria,Urine 1+ /lpf; Hyaline Casts,Urine Occasional #/lpf (0); Mucus,Urine 2+ /lpf; RBC,Urine TNTC #/hpf (0-3)
[2025-09-27] MEDS: IOPAMIDOL-370 (76%);100ML BOTTLE 80 ML IV (15:53)
[2025-09-27] MEDS: 0.9 % SODIUM CHLORIDE 50 ML VIAL IV (15:53)
[2025-09-27] MEDS: SODIUM CHLORIDE 0.9% 10ML SYR (RAD ONLY) 10 ML IV (15:53)
[2025-09-27 17:29] LABS: Troponin I 0.09 ng/ml (0.00-0.034)
--- NOTE | 2025-09-27 18:32 | PC.NURSE ---
Report given to MAURA Morales.
--- NOTE | 2025-09-27 20:05 | P.HP_ITS ---
History of Present Illness *Admission Date: 09/27/25 *Reason for visit:: LOC *History of present illness: 85-year-old patient with past medical history of CAD, BPH, hypertension presents with loss of consciousness. Patient states his brother was in town for holiday since Tuesday. Patient's brother last seen him on Tuesday, then visited patient on and found patient unconscious in bedroom. Patient unsure when he fell, he denies any prodromal symptoms. Patient refused to visit hospital on . Patient then called his son this a.m. complaining of malaise. Patient brought to hospital with CPK 590, and UA extremely suspicious for UTI. UA +3 protein, trace glucose, +3 blood, positive nitrates, positive leuk esterase. Patient denies history of diabetes, dysuria, urinary frequency, urinary hesitancy chest pain, palpitations, productive cough, shortness of breat h, fevers, chills, known sick contacts, recent travel, abdominal pain, GI bleeding, ataxia, recent accidents. Patient does admit to some rhinitis over past few days. Patient states he takes no medications at home except occasionally aspirin 81 mg. Patient accompanied to the emergency room by his son who collaborates the story. Denies history of recurrent urinary tract infections. [facility] Disclaimer: The information contained in this section may have been updated after the patient was seen, as this information can be updated by other users. Medical History (Updated 09/27/25 @ 20:44 by Pete Miranda MD) Aortic aneurysm Hip fracture requiring operative repair Surgical History (Updated 09/27/25 @ 19:46 by Ratna Nicole RN) History of open heart surgery History of back surgery Social History (Updated 09/27/25 @ 19:51 by Ratna Nicole RN) Smoking Status: Former smoker alcohol intake: never substance use type: denies use current occupational status: retired Travel in the last 8 weeks?: None household members: spouse housing: house current occupational exposures/hazards: No caffeine: Yes Have you lived/traveled outside [place] in past 30 days?: No Contact w/someone who lives/traveled outside US past 30 days?: No Exposure to someone with infectious disease in past 14 days?: No Do you have a fever (greater than 100.4 F or 38 C)?: No Have you tested positive for COVID-19?: No Exposed to someone with COVID-19 in past 14 days?: No Do you have a sore throat?: No Do you have a cough?: No Do you have any weakness?: No Do you have any diarrhea?: No Are you experiencing any unusual bleeding?: No Do you have any muscle aches/pain?: No Do you have any abdominal pain?: No Are you experiencing loss of taste or smell?: No Other Medical History Have you received the Flu Vaccine for this season: No Have you received the Pneumonia Vaccine: No Review of Systems Review of Systems Review of systems:: pertinent systems reviewed and negative unless documented below Review of systems (narrative): see [place] Constitutional Constitutional: Reports weakness *Neurologic Neurologic: Reports confusion and Reports weakness Psychiatric Psychiatric: Reports confusion Meds Home Medications and Allergies Home Medications ?Medication ?Instructions ?Recorded ?Confirmed ?Type losartan 100 mg tablet 100 mg PO DAILY Hypertension 09/12/18 09/27/25 History simvastatin 40 mg tablet 40 mg PO HS Cholesterol 09/0209/27/25 History hydrochlorothiazide 12.5 mg tablet 12.5 mg PO DAILY Fl uid 11/12/21 09/27/25 History hydrocodone 5 mg-acetaminophen 325 1 tab PO Q4HP PRN M ild To Moderate 11/16/21 09/27/25 Rx mg tablet Pain #60 tabs aspirin 325 mg tablet 325 mg PO DAILY Heart Health 01/18/22 09/27/25 History cefdinir 300 mg capsule 300 mg PO BID 5 days #10 cap s 01/19/22 09/27/25 Rx levofloxacin 500 mg tablet 500 mg PO DAILY 5 days #5 t abs 02/22/22 09/27/25 Rx New Prescriptions to Start Prescriptions: Allergies Allergy/AdvReac Type Severity Reaction Status Date / Time codeine (CODEINE) Allergy Unknown I-RASH Verified 02/22/22 13:42 Exam Data for Last 24 hours Vital signs and Labs for Last 24 Hours: Temp Pulse Resp BP Pulse Ox O2 Del Method 98.5 F 76 16 152/73 H 98 Room Air 09/27/25 19:32 09/27/25 19:32 09/27/25 19:32 09/27/25 19:32 09/27/25 19:32 09/27/25 19:32 Laboratory Results - last 24 hr 09/27/25 13:34: WBC 11.0 H, RBC 4.45 L, Hgb 12.9 L, Hct 38.4 L, MCV 86.3, MCH 29.0, MCHC 33.6, RDW 13.9, Plt Count 318, MPV 9.9, Neut % (Auto) 78.4, Lymph % (Auto) 13.0, [place] % (Auto) 7.4, Eos % (Auto) 0.5, Baso % (Auto) 0.3, Neut # (Auto) 8.6 H, Lymph # (Auto) 1.4, [place] # (Auto) 0.8, Eos # (Auto) 0.1, Baso # (Auto) 0.0, Sodium 140, Potassium 3.7, Chloride 107, Carbon Dioxide 26, Anion Gap 10.7, BUN 28 H, Creatinine 2.30 H, Estimated Creat Clear 23, Estimated GFR 27 L, Est GFR ( Amer) 33 L, Glucose 92, Calcium 9.6, Magnesium 2.4 H, Total Bilirubin 0.7, AST 89 H, ALT 42, Alkaline Phosphatase 99, Total Creatine Kinase 590 H*, Troponin I 0.11 H, NT-Pro-B Natriuret Pep 3650 H, Total Protein 6.7 D, Albumin 3.5, Globulin 3.2, Albumin/Globulin Ratio 1.1 09/27/25 15:00: Urine Color Yellow, Urine Appearance Clear, Urine pH 5.0, Ur Specific [place] 1.025, Urine Protein 3+ A, Urine Glucose (UA) Trace, Urine Ketones 1+, Urine Blood 3+ A, Urine Nitrate Positive A, Urine Bilirubin Negative, Urine Urobilinogen 1.0, Ur Leukocyte Esterase 1+ A, Urine RBC Tntc, Urine WBC 5-10, Ur Squamous Epith Cells 5-10, Urine Bacteria 1+, Hyaline Casts Occasional, Urine Mucus 2+ 09/27/25 17:00: Troponin I 0.09 H I & O for Last 24 hours: Intake & Output 09/24/25 09/25/25 09/26/25 09/27/25 23:59 23:59 23:59 23:59 Intake Total 1050 / 1050 Balance 1050 / 1050 Weight 66.497 kg *Routine HEENT Exam Head: Present normocephalic Eye: Present EOMI and normal accommodation ENT: Present mucous membranes moist *Routine Neck Exam Neck: Present supple and full ROM *Routine Respiratory Exam Respiratory: Present CTA bilaterally *Routine Cardiovascular Exam Cardiovascular: Present RRR, Normal S1 and Normal S2 *Routine Abdominal Exam Abdominal: Present soft and normoactive bowel sounds *Routine Rectal Exam Rectal:: deferred *Routine Genitalia Exam Genitalia:: deferred *Routine Extremities Exam Extremities: Present full ROM *Routine Skin Exam Skin: Present intact *Routine Neurological Exam Neurological: Present alert and oriented X3 Assessment and Plan *Assessment and plan (1) LOC (loss of consciousness): Status: Acute Category: Medical Code(s): R40.20 - Unspecified coma (2) Acute kidney injury: Status: Acute Category: Medical Code(s): N17.9 - Acute kidney failure, unspecified (3) Urinary tract infection: Status: Acute Category: Medical Code(s): N39.0 - Urinary tract infection, site not specified (4) Rhabdomyolysis: Status: Acute Category: Medical Code(s): M62.82 - Rhabdomyolysis (5) Essential hypertension: Status: Acute Category: Medical Code(s): I10 - Essential (primary) hypertension (6) CAD (coronary artery disease): Status: Acute Category: Medical Code(s): I25.10 - Atherosclerotic heart disease of [place] coronary artery without angina pectoris Plan 85-year-old patient with past medical history of CAD, BPH, hypertension presents with loss of consciousness. Patient brought to hospital with CPK 590, and UA extremely suspicious for UTI. UA +3 protein, trace glucose, +3 blood, positive nitrates, positive leuk esterase. Admitted For LC due to UTI. Problems as listed below. Loss of consiousness due to UTI - 09/27 Ct brain WNL. no current indication for MRI brain since LOC likely due to UTI/dehydration, and NIH =0 during my eval. Telemetry monitoring overnight looking to r/o arrhythmias. PT/OT evl in am. ANDRAE - 09/27 Na 140, K=3.7, Hq=461, HCO2=26. AST=89. ALT=42.AlK Phos=99. - 09/27 Cr 2.3, Bun 28 vs 01/19 Cr 0.8, Bun 15. 125 cc/hr NS x 24hrs. recheck BUN/Cr in am. Acute UTI - 09/27 UA +3 protein, trace glucose, +3 blood, positive nitrates, positive leuk esterase. UCx done at admission. Rocephin 1gm IV q24hrs. Rhabdomyolysis - 09/27 CPK 590...likely trending down. MIVF as stated above and repeat in am. trace glucouria: - noted on UA. denies h/o diabetes but will check HgA1c. PPX Heparin SQ Code Full FEN Reg diet HTN hydrazine 10mg IV q4hrs PRN SBP over 160. PT used to take losartan/HCTZ for BP control, but denies any current BP medications. CAD asa 81mg po daily. MDM - pt son acted as independent historian during my interview today. - I spoke with ED provider at time of hospital admission. -I made decision to admit pt to hospital for acute UTI related LOC mgmt. 35 mins of total care time spent on this pt by myself, Pete Miranda MD, 09/27/25 D/C Planning: Pt will likely spend over 2 midnights in hosp during this hosp stay.
--- NOTE | 2025-09-27 20:05 | PC.NURSE ---
Patient does not comprehend taking any medications currently. Patient's son was present during the admission assessments and stated that he does not take any medications at home. External medication history is also not available to view any fill histories or prescriptions. Home medication reconciliation was completed to the best of my ability by confirming the existing medication list as unknown.
[2025-09-27 20:14] LABS: Troponin I 0.08 ng/ml (0.00-0.034)
[2025-09-27] MEDS: HEPARIN SODIUM 5,000 UNIT/ML VIAL 5000 UNIT SUBCUT (21:10)
[2025-09-27] MEDS: 0.9 % SODIUM CHLORIDE 1000ML 1,000 ML 100 ML IV (21:10)
[2025-09-27 21:26] LABS: Adenovirus,PCR Not Detected (NotDetected); Chlamydophila Pneumoniae, PCR Not Detected (NotDetected); Coronavirus 19, PCR Not Detected (NotDetected); Coronovirus HKU1,PCR Not Detected (NotDetected); Influenza A, PCR Not Detected (NotDetected); Influenza AH1, 2009 Not Detected (NotDetected); Influenza AH1, PCR Not Detected (NotDetected); Influenza AH3,PCR Not Detected (NotDetected); Influenza B, PCR Not Detected (NotDetected); Mycoplasma Pneumoniae, PCR Not Detected (NotDetected); Parainfluenza 1, PCR Not Detected (NotDetected); Parainfluenza 2, PCR Not Detected (NotDetected); Parainfluenza 3, PCR Not Detected (NotDetected); Parainfluenza 4, PCR Not Detected (NotDetected)
[2025-09-27] MEDS: POTASSIUM CHLORIDE 20MEQ TAB 40 MEQ PO (21:47)
[2025-09-28] VITALS (7 sets, daily range): BP systolic 127–149; BP diastolic 60–89; PULSE 64–125; RESP 16–20; TEMP 36.6–36.8; O2SAT 94–98; BMI 19.8; BMI 20.9
--- NOTE | 2025-09-28 04:35 | PC.NURSE ---
Mr Elroy Wetzel was newly admitted on behalf of the documented diagnosis rhabdomyolysis and UTI. Admission assessments were completed by me during this shift. He is alert and oriented x2/x3; slight disorientation to situation was noted. Hard of hearing. Patient has endorsed difficulty with recalling the events that happened at home prior to arriving to the hospital upon assessment. Mild impaired comprehension exhibited. Negative for facial droop, grasps are equal, fluid speech. He was observed to be resting in bed with eyes closed, respirations even and unlabored on room air, and no apparent distress throughout the majority of the night. Bruising is noted to his forehead and both arms; patient has small scattered scabs on his shins as well. On telemetry. Physical assessment (see nursing shift biophysical intervention) was performed as appropriately per DEC. Normal saline continues to infuse at 100 mL/hr. Heparin for VTE prophylaxis. Electrolyte replacement protocol as directed; received oral potassium. Patient gets up with at least x1 assistance due to unsteady gait. Does endorse some weakness and generalized soreness. He has not had any other complaints such as shortness of breath, chest pain, nausea, etc. this shift. Consumed a couple bedtime snacks. Vital signs are stable. At this time, the patient remains resting in bed with no new needs vocalized. Bed alarm on. Call light within reach.
[2025-09-28 07:17] LABS: Hematocrit 31.2 % (42.0-52.0); Immature Granulocytes % 0.3 %; Mean Corpuscular HGB Conc 34.6 g/dL (31.8-35.4); Mean Corpuscular Hemoglobin 30.1 pg (27.0-31.2); Mean Corpuscular Volume 86.9 fl (80-94); Nucleated Red Blood Cells % 0 %; Platelet Count 236 K/mm3 (142-424); Red Blood Count 3.59 M/mm3 (4.60-6.20); Red Cell Distribution Width-SD 44.2 fL; White Blood Count 9.1 K/mm3 (4.8-10.8)
[2025-09-28 07:24] LABS: Chloride 111 mmol/L (98-107); Potassium 3.9 mmoL/L (3.5-5.1); Sodium 136 mmol/L (136-145)
[2025-09-28 07:27] LABS: Anion Gap 7.9 mEq/L (5-15); Blood Urea Nitrogen 22 mg/dl (9-20); Calcium 8.5 mg/dl (8.4-10.2); Carbon Dioxide 21 mmol/L (22.0-30.0); Creatine Kinase 297 U/L (55-170); Creatinine Clearance Estimated 27 mL/min (50-200); Creatinine,Serum 1.80 mg/dl (0.66-1.25); Estimated Glomerular Filt Rate 36 ml/min (>60); GFR (African American) 43 ML/MIN (>60); Glucose 75 mg/dl (74-100); Magnesium 2.2 mg/dl (1.6-2.3)
[2025-09-28 07:40] LABS: Hemoglobin 10.8 g/dL (14.1-18.0)
[2025-09-28] MEDS: 0.9 % SODIUM CHLORIDE 1000ML 1,000 ML 100 ML IV (07:59)
[2025-09-28 08:42] LABS: Hemoglobin A1C 5.3 % (4.0-6.0)
[2025-09-28] MEDS: HEPARIN SODIUM 5,000 UNIT/ML VIAL 5000 UNIT SUBCUT ×2 (09:27→13:53)
[2025-09-28] MEDS: ASPIRIN EC 81MG TABLET 81 MG PO (09:27)
--- NOTE | 2025-09-28 11:43 | HMH.PHAAMS2 ---
- Antimicrobial Stewardship Review culture & sensitivity review Stewardship interventions: culture & sensitivity review (URINE CX PENDING)
--- NOTE | 2025-09-28 15:22 | P.PN_ITS ---
Subjective *Date: 09/28/25 *Time: 15:22 Interval history: Patient feeling better today, continues to have weakness with ambulation. Unstable. Follow-up PT OT recommendations. Exam Data for Last 24 hours Vital signs and Labs for Last 24 Hours: Temp Pulse Resp BP Pulse Ox O2 Del Method 97.9 F 81 20 149/81 H 98 Room Air 09/28/25 12:00 09/28/25 12:00 09/28/25 12:00 09/28/25 12:00 09/28/25 12:00 09/28/25 13:10 Laboratory Results - last 24 hr 09/27/25 15:00: Urine RBC Tntc, Urine WBC 5-10, Ur Squamous Epith Cells 5-10, Urine Bacteria 1+, Hyaline Casts Occasional, Urine Mucus 2+ 09/27/25 17:00: Troponin I 0.09 H 09/27/25 19:39: Troponin I 0.08 H 09/27/25 21:15: Chlamy pneumoniae PCR Not detected, Adenovirus (PCR) Not detected, B. pertussis DNA (PCR) Not detected, Coronavirus OC43 (PCR) Not detected, Coronavirus HKU1 (PCR) Not detected, Coronavirus 229E (PCR) Not detected, SARS-CoV-2 (PCR) Not detected, Coronavirus NL63 (PCR) Not detected, Human Metapneumovir PCR Not detected, Influenza A (H1) PCR Not detected, Influ A (H1N1/09) PCR Not detected, Influenza A (H3) PCR Not detected, Influenza Type A (PCR) Not detected, Influenza Type B (PCR) Not detected, M. pneumoniae (PCR) Not detected, Parainfluenza 1 (PCR) Not detected, Parainfluenza 2 (PCR) Not detected, Parainfluenza 3 (PCR) Not detected, Parainfluenza 4 (PCR) Not detected, RSV (PCR) Not detected, Entero/Rhino (PCR) Not detected 09/28/25 07:00: WBC 9.1, RBC 3.59 L, Hgb 10.8 L D, Hct 31.2 L, MCV 86.9, MCH 30.1, MCHC 34.6, RDW 14.0, Plt Count 236 D, MPV 10.3, Neut % (Auto) 66.1, Lymph % (Auto) 22.8, [place] % (Auto) 9.0, Eos % (Auto) 1.5, Baso % (Auto) 0.3, Neut # (Auto) 6.0, Lymph # (Auto) 2.1, [place] # (Auto) 0.8, Eos # (Auto) 0.1, Baso # (Auto) 0.0, Sodium 136, Potassium 3.9, Chloride 111 H, Carbon Dioxide 21 L, Anion Gap 7.9, BUN 22 H, Creatinine 1.80 H D, Estimated Creat Clear 27, Estimated GFR 36 L, Est GFR ( Amer) 43 L D, Glucose 75, Hemoglobin A1c 5.3, Calcium 8.5, Magnesium 2.2, Total Creatine Kinase 297 H D I & O for Last 24 hours: Intake & Output 09/25/25 09/26/25 09/27/25 09/28/25 23:59 23:59 23:59 23:59 Intake Total 1050 / 1250 2930 / 2930 Output Total 0 / 0 Balance 1050 / 1250 2930 / 2930 Weight 66.497 kg 66.497 kg Constitutional Constitutional: no acute distress *Routine HEENT Exam Head: Present normocephalic Eye: Present EOMI and PERRL ENT: Present mucous membranes moist *Routine Neck Exam Neck: Present supple; Absent lymphadenopathy *Routine Respiratory Exam Respiratory: Present CTA bilaterally *Routine Cardiovascular Exam Cardiovascular: Present RRR *Routine Abdominal Exam Abdominal: Present soft and normoactive bowel sounds; Absent tenderness *Routine Extremities Exam Extremities: Absent cyanosis, clubbing or edema *Routine Skin Exam Skin: Present warm; Absent rash *Routine Neurological Exam Neurological: Present alert Assessment and Plan *Assessment and plan (1) LOC (loss of consciousness): Status: Acute Category: Medical Code(s): R40.20 - Unspecified coma (2) Acute kidney injury: Status: Acute Category: Medical Code(s): N17.9 - Acute kidney failure, unspecified (3) Urinary tract infection: Status: Acute Category: Medical Code(s): N39.0 - Urinary tract infection, site not specified (4) Rhabdomyolysis: Status: Acute Category: Medical Code(s): M62.82 - Rhabdomyolysis (5) Essential hypertension: Status: Acute Category: Medical Code(s): I10 - Essential (primary) hypertension (6) CAD (coronary artery disease): Status: Acute Category: Medical Code(s): I25.10 - Atherosclerotic heart disease of [place] coronary artery without angina pectoris Plan Elroy Wetzel is a 85-year-old patient with past medical history of CAD, BPH, hypertension presents with loss of consciousness. Patient brought to hospital with CPK 590, and UA extremely suspicious for UTI. UA +3 protein, trace glucose, +3 blood, positive nitrates, positive leuk esterase. Admitted For LC due to UTI. Problems as listed below. #Acute UTI #Loss of consciousness, resolved #Acute metabolic encephalopathy, resolved - 09/27 UA +3 protein, trace glucose, +3 blood, positive nitrates, positive leuk esterase. ? Patient feeling better today, alert and oriented but continues to have dementia/memory issues per son at bedside. Stated that he lived with his , however per son his last year. ? Continues to be weak, with lower extremity weakness. PT/OT consulted, pending further recommendations. ANDRAE - Initial creatinine 2.3, improved to 1.8 today after fluid resuscitation. Baseline unknown, will continue monitor. ? Follow-up morning RFT's. Patient tolerating p.o. intake, IV fluids discontinued. Rhabdomyolysis #NSTEMI type II - 09/27 CPK 590. In the setting of ANDRAE as well. CK improved to 291 today. Patient feeling better. ? Troponin peaked at 0.11, down to 0.08. Patient without chest pain or shortness of breath. ? Will refer to cardiology for further evaluation management. CAD asa 81mg po daily. DVT prophylaxis: Lovenox 30 mg Code Full FEN Reg diet
[2025-09-29] VITALS: BP 138/84; PULSE 83; PULSE 96; RESP 16; TEMP 37; O2SAT 97
--- NOTE | 2025-09-29 02:14 | PC.NURSE ---
Pt AOx1-2. No significant changes at this time. VSS. NSR on tele. Tolerating room air. Currently resting in bed with eyes closed. Respirations even and unlabored. Bed alarm on and functioning. Bed is low, locked, and call light is in reach.
[2025-09-29 04:00] VITALS: BP 136/82; PULSE 89; PULSE 96; RESP 16; TEMP 36.9; O2SAT 98; BMI 20.8
[2025-09-29 06:21] LABS: Chloride 112 mmol/L (98-107); Potassium 3.9 mmoL/L (3.5-5.1); Sodium 135 mmol/L (136-145)
[2025-09-29 06:24] LABS: Anion Gap 6.9 mEq/L (5-15); Blood Urea Nitrogen 17 mg/dl (9-20); Carbon Dioxide 20 mmol/L (22.0-30.0); Creatinine Clearance Estimated 32 mL/min (50-200); Creatinine,Serum 1.60 mg/dl (0.66-1.25); Estimated Glomerular Filt Rate 41 ml/min (>60); GFR (African American) 50 ML/MIN (>60)
[2025-09-29 06:25] LABS: Calcium 8.4 mg/dl (8.4-10.2); Glucose 87 mg/dl (74-100); Magnesium 2.0 mg/dl (1.6-2.3)
[2025-09-29 06:30] LABS: Hematocrit 31.1 % (42.0-52.0); Hemoglobin 10.3 g/dL (14.1-18.0); Immature Granulocytes % 0.4 %; Mean Corpuscular HGB Conc 33.1 g/dL (31.8-35.4); Mean Corpuscular Hemoglobin 29.3 pg (27.0-31.2); Mean Corpuscular Volume 88.4 fl (80-94); Nucleated Red Blood Cells % 0 %; Platelet Count 238 K/mm3 (142-424); Red Blood Count 3.52 M/mm3 (4.60-6.20); Red Cell Distribution Width-SD 45.7 fL; White Blood Count 7.2 K/mm3 (4.8-10.8)
[2025-09-29 08:00] VITALS: BP 180/98; PULSE 77; PULSE 90; RESP 18; TEMP 37; O2SAT 96
[2025-09-29 08:30] VITALS: O2SAT 96
[2025-09-29] MEDS: ASPIRIN EC 81MG TABLET 81 MG PO (09:06)
[2025-09-29 12:00] VITALS: BP 123/62; PULSE 76; RESP 18; TEMP 36.7; O2SAT 96
--- NOTE | 2025-09-29 13:23 | HMH.PTEV ---
Physical Therapy Evaluation Rehab PT IP Evaluation Start: 09/27/25 20:10 Freq: ONCE Status: Active Protocol: Document 09/29/25 13:16 KARINA (Rec: 09/29/25 13:23 KARINA [id number]) Subjective/History History History 85-year-old patient with past medical history of CAD, BPH, hypertension presents with loss of consciousness. Patient states his brother was in town for holiday since Tuesday. Patient's brother last seen him on Tuesday, then visited patient on and found patient unconscious in bedroom. Patient unsure when he fell, he denies any prodromal symptoms. Patient refused to visit hospital on . Patient then called his son this a.m. complaining of malaise. Patient brought to hospital with CPK 590, and UA extremely suspicious for UTI. UA +3 protein, trace glucose, +3 blood, positive nitrates, positive leuk esterase. Patient denies history of diabetes, dysuria, urinary frequency, urinary hesitancy chest pain, palpitations, productive cough, shortness of breath, fevers, chills, known sick contacts, recent travel, abdominal pain, GI bleeding, ataxia, recent accidents. Patient does admit to some rhinitis over past few days . Patient states he takes no medications at home except occasionally aspirin 81 mg. Patient accompanied to the emergency room by his son who collaborates the story. Denies history of recurrent urinary tract infections. Subjective Subjective PT orders received for mobility assessment and MD ordered NWB. However, no history noted to suggest issues with WB'ing for this patient and nursing staff reports he has been independently ambulatory without precautions since his admission. He reports he lives alone, 2-3 RAGIN[place] the home, and he is generally independent with all mobility without an AD. Family in room at time of evaluation agrees with pt reports of his baseline living situation and mobility and they report family is typically available to check on the patient several times per week. Pt does appear to have some baseline dementia of unknown severity as he did not remember having a fall or being found in the floor at this time. New diagnosis of No cancer in past 12 months? [facility] How much help from another person do you currently need... Turning from your None back to your side while in a flat bed without using bedrails? Moving from lying on None back to sitting on the side of a flat bed without using bedrails? Moving to and from a None bed to a chair ( including a wheelchair)? Standing up from a None chair using your arms? (e.g., wheelchair, bedside chair) Walking in hospital None room? Climbing 3-5 steps None with a railing? Mobility Score 24 Mobility Level [facility] Mobility 8 Walk 250 feet or more Mobility Calculator Rehab PT IP Eval Objective Appearance Patient Behavior Appropriate Patient Orientation Person,Place,Time Difficulty following none instructions Speech Pattern Clear Ambulation Patient Able to Yes Ambulate Ambulation Observation IP General Gait No Deviations/Normal Pattern Observation Ambulation Distance 200 (feet) Ambulation Assistive None Device Ambulation Ability Independent Balance Ability to Arise Able, uses arms to help Sitting Balance Steady, safe Standing Balance Steady, wide stance Dynamic Sitting Good Balance Ability Dynamic Standing Good Balance Ability Transfers Bed Transfer Ability Independent Chair Transfer Independent Ability Sit to Stand Bed Independent Transfer Ability Sit to Stand Chair Independent Transfer Ability Rehab PT IP prob,goals,plan Problems Date of Evaluation: 09/29/25 Discharge Plan PT Discharge Plan Pt is obviously independent with all mobility and has been ambulating with nursing staff since his admission to the hospital. No current needs for skilled acute therapy services noted and pt is appropriate to return home once medically stable for d/c. Eval Complexity Eval Charge Codes 00541 - Moderate Complexity PHYSICIAN CERTIFICATION: I certify the specified therapy services for Elroy Wetzel are required, authorized, and reviewed every 30 days.
--- NOTE | 2025-09-29 13:34 | P.DS_ITS ---
General Admission date:: 09/27/25 HPI HPI HPI: 85-year-old patient with past medical history of CAD, BPH, hypertension presents with loss of consciousness. Patient states his brother was in town for holiday since Tuesday. Patient's brother last seen him on Tuesday, then visited patient on and found patient unconscious in bedroom. Patient unsure when he fell, he denies any prodromal symptoms. Patient refused to visit hospital on . Patient then called his son this a.m. complaining of malaise. Patient brought to hospital with CPK 590, and UA extremely suspicious for UTI. UA +3 protein, trace glucose, +3 blood, positive nitrates, positive leuk esterase. Patient denies history of diabetes, dysuria, urinary frequency, urinary hesitancy chest pain, palpitations, productive cough, shortness of breath, fevers, chills, known sick contacts, recent travel, abdominal pain, GI bleeding, ataxia, recent accidents. Patient does admit to some rhinitis over past few days. Patient states he takes no medications at home except occasionally aspirin 81 mg. Patient accompanied to the emergency room by his son who collaborates the story. Denies history of recurrent urinary tract infections. Hospital Course Hospital Course Hospital Course: Elroy Wetzel is a 85-year-old patient with past medical history of CAD, BPH, hypertension presents with loss of consciousness. Patient brought to hospital with CPK 590, and UA extremely suspicious for UTI. UA +3 protein, trace glucose, +3 blood, positive nitrates, positive leuk esterase. Admitted For LC due to UTI. Problems as listed below. #Acute UTI #Loss of consciousness, resolved #Acute metabolic encephalopathy, resolved - 09/27 UA +3 protein, trace glucose, +3 blood, positive nitrates, positive leuk esterase. ? Overall, patient clinically improved with IV ceftriaxone and IV fluids. Patient feeling better today, alert and oriented but continues to have dementia/memory issues at baseline per son at bedside. Stated that he lived with his , however per son his last year. ? PT OT did not recommend rehab needs, discharged with cefdinir 300 mg twice daily for 3 more days. ANDRAE - Initial creatinine 2.3, improved to 1.6 after fluid resuscitation. Tolerating p.o. intake. Rhabdomyolysis #NSTEMI type II - 09/27 CPK 590. In the setting of ANDRAE as well. CK improved to 291 today. Patient feeling better. ? Troponin peaked at 0.11, down to 0.08. Patient without chest pain or shortness of breath. ? Will refer to cardiology for further evaluation management. CAD asa 81mg po daily. Exam Data for Last 24 hours Vital signs and Labs for Last 24 Hours: Temp Pulse Resp BP Pulse Ox O2 Del Method 98.1 F 76 18 123/62 96 Room Air 09/29/25 12:09/29/25 12:00 09/29/25 12:00 09/29/25 12:09/29/25 12:00 09/29/25 12:00 Laboratory Results - last 24 hr 09/29/25 06:00: WBC 7.2, RBC 3.52 L, Hgb 10.3 L, Hct 31.1 L, MCV 88.4, MCH 29.3, MCHC 33.1, RDW 14.2, Plt Count 238, MPV 10.3, Neut % (Auto) 61.4, Lymph % (Auto) 24.2, Geary % (Auto) 8.0, Eos % (Auto) 5.2, Baso % (Auto) 0.8, Neut # (Auto) 4.4, Lymph # (Auto) 1.7, Geary # (Auto) 0.6, Eos # (Auto) 0.4, Baso # (Auto) 0.1, Sodium 135 L, Potassium 3.9, Chloride 112 H, Carbon Dioxide 20 L, Anion Gap 6.9, BUN 17, Creatinine 1.60 H, Estimated Creat Clear 32, Estimated GFR 41 L, Est GFR ( Amer) 50 L, Glucose 87, Calcium 8.4, Magnesium 2.0 I & O for Last 24 hours: Intake & Output 09/26/25 09/27/25 09/28/25 09/29/25 23:59 23:59 23:59 23:59 Intake Total 1050 / 1250 4290 / 4410 900 / 900 Output Total 0 / 0 0 / 0 Balance 1050 / 1250 4290 / 4410 900 / 900 Weight 66.497 kg 69.938 kg 69.93 kg Microbiology Reports for the Last 24 Hours: Microbiology 09/27/25 15:00 Urine,Catheterized Urine Culture - Final NO GROWTH AFTER 48 HOURS Constitutional Constitutional: no acute distress *Routine HEENT Exam Head: Present normocephalic Eye: Present EOMI and PERRL ENT: Present mucous membranes moist *Routine Neck Exam Neck: Present supple; Absent lymphadenopathy *Routine Respiratory Exam Respiratory: Present CTA bilaterally *Routine Cardiovascular Exam Cardiovascular: Present RRR *Routine Abdominal Exam Abdominal: Present soft and normoactive bowel sounds; Absent tenderness *Routine Extremities Exam Extremities: Absent cyanosis, clubbing or edema *Routine Skin Exam Skin: Present warm; Absent rash *Routine Neurological Exam Neurological: Present alert Results Data Completed and Pending Labs on day of discharge: Labs from last 24 hours 09/29/25 06:00 WBC 7.2 RBC 3.52 L Hgb 10.3 L Hct 31.1 L MCV 88.4 MCH 29.3 MCHC 33.1 RDW 14.2 Plt Count 238 MPV 10.3 Neut % (Auto) 61.4 Lymph % (Auto) 24.2 Geary % (Auto) 8.0 Eos % (Auto) 5.2 Baso % (Auto) 0.8 Neut # (Auto) 4.4 Lymph # (Auto) 1.7 Geary # (Auto) 0.6 Eos # (Auto) 0.4 Baso # (Auto) 0.1 Sodium 135 L Potassium 3.9 Chloride 112 H Carbon Dioxide 20 L Anion Gap 6.9 BUN 17 Creatinine 1.60 H Estimated Creat Clear 32 Estimated GFR 41 L Est GFR ( Amer) 50 L Glucose 87 Calcium 8.4 Magnesium 2.0 DS: Diagnosis Discharge Diagnosis (1) LOC (loss of consciousness): Status: Acute Code(s): R40.20 - Unspecified coma (2) Acute kidney injury: Status: Acute Code(s): N17.9 - Acute kidney failure, unspecified (3) Urinary tract infection: Status: Acute Code(s): N39.0 - Urinary tract infection, site not specified (4) Rhabdomyolysis: Status: Acute Code(s): M62.82 - Rhabdomyolysis (5) Essential hypertension: Status: Acute Code(s): I10 - Essential (primary) hypertension (6) CAD (coronary artery disease): Status: Acute Code(s): I25.10 - Atherosclerotic heart disease of [place] coronary artery without angina pectoris Meds Home Medications and Allergies Home Medications ?Medication ?Instructions ?Recorded ?Confirmed ?Type aspirin 81 mg tablet,delayed 81 mg PO DAILY #30 tabs 1 11/30/24 Rx release cefdinir 300 mg capsule 300 mg PO BID 3 days #6 caps 09/29/25 Rx New Prescriptions to Start Prescriptions: aspirin Wellington Rios cefdinir Wellington Rios Allergies Allergy/AdvReac Type Severity Reaction Status Date / Time codeine (CODEINE) Allergy Unknown I-RASH Verified 02/22/22 13:42 Discharge Plan Disposition Patient Disposition: Home, Self-Care Condition: Fair Follow up Plan Follow up with: Sukumar Mckinley MD [Primary Care Provider, Medical] - Enter time for follow up Anthony Guzman PA [Physician [facility], Cardiology] - 2 weeks Referral Note: NSTEMI Prescriptions/Medication Reconciliation: New cefdinir 300 mg capsule 300 mg PO BID 3 Days Qty: 6 0RF aspirin 81 mg tablet,delayed release (DR/EC) 81 mg PO DAILY Qty: 30 0RF Problem Reconciliation Problems Reviewed?: Yes Patient Discharge Instructions Patient Instructions: DI for Urinary Tract Infection (UTI), DI for Rhabdomyolysis, DI for Acute Kidney Injury Print Language: Malian Providers Primary Care Provider: Sukumar Mckinley Admit Provider: Wellington Rios Attending Provider: Wellington Rios
--- NOTE | 2025-10-01 10:46 | SW/DCPLANNER ---
Spoke with patient's son on the phone. Patient's son stated that patient is doing well. Patient's son stated that he is aware of his dads upcoming appointments. Patient's son stated that he was able to leaf size picker his dads new medicine. Patient's son stated that he has no concerns or questions at this time. Rodney Friedman
== END 2025-09-29 14:41 | disposition home or self-care (01) ==
LOC: ER 18:05 → 2ND 18:08
PROVIDERS: Internal Medicine; Nurse Practitioner Family; Admitting Provider Student in an Organized Health Care Education/Training Program; Emergency Provider Student in an Organized Health Care Education/Training Program; PCP Family Medicine; Visit Provider Student in an Organized Health Care Education/Training Program
DX: R40.20 Unspecified coma (principal); N17.9 Acute kidney failure, unspecified; N39.0 Urinary tract infection, site not specified; M62.82 Rhabdomyolysis; I10 Essential (primary) hypertension; I25.10 Atherosclerotic heart disease of native coronary artery without angina pectoris; Z87.891 Personal history of nicotine dependence; Z88.5 Allergy status to narcotic agent; Z79.82 Long term (current) use of aspirin; N40.0 Benign prostatic hyperplasia without lower urinary tract symptoms; I25.2 Old myocardial infarction; M48.56XA Collapsed vertebra, not elsewhere classified, lumbar region, initial encounter for fracture; I71.43 Infrarenal abdominal aortic aneurysm, without rupture; I49.1 Atrial premature depolarization; I45.10 Unspecified right bundle-branch block
CPT/HCPCS: 0223U; 36415; 70450; 71045; 71275; 74174; 80048; 80053; 81001; 82550; 83036; 83735; 83880; 84484; 85025; 87086; 93005; 97162; 99285; G0378; J0696; J1644; J1650; J7030; Q9967